=== PATIENT | male | born 1945 | race Caucasian/White ===

== ENCOUNTER → 2016-04-22 | Outpatient (CLI) | payer OTHER, MEDICARE | LOC: BMCIMAGING 15:17 | PROVIDERS: ATTEND Internal Medicine | DX: R05 Cough (principal); R06.02 Shortness of breath ==

== ENCOUNTER 2016-05-16 15:57 | Inpatient (IN) | payer OTHER, MEDICARE ==
--- NOTE | 2016-05-16 16:06 | CPEKG ---
Heart Rate: 34 RR Interval: 1765 QRSD Interval: 114 QT Interval: 496 QTC Interval: 373 QRS [place]: 21 T Wave [place]: 17 EKG Severity - ABNORMAL ECG - EKG Impression: JUNCTIONAL ESCAPE RHYTHM EKG Impression: INCOMPLETE RIGHT BUNDLE BRANCH BLOCK Electronically Signed By: Ernesto Carbone 16-May-2016 21:44:06
--- NOTE | 2016-05-16 16:09 | EDPHY ---
H & P Time Seen by Provider: 05/16/16 16:08 - Medical/Surgical History Hx Asthma: No Hx Chronic Respiratory Disease: No Hx Diabetes: No Hx Cardiac Disease: Yes Hx Renal Disease: Yes Hx Cirrhosis: No Hx Alcoholism: No Hx HIV/AIDS: No Hx Splenectomy or Spleen Trauma: No Other PMH: right nephrectomy, CABG in 2003, prostatectomy, - Social History Smoking Status: Former smoker Constitutional: Initial Vital Signs Temperature (C) 36.8 C 05/16/16 15:57 Heart Rate 34 L 05/16/16 15:57 Respiratory Rate 16 05/16/16 15:57 Blood Pressure 118/75 05/16/16 15:57 O2 Sat (%) 91 L 05/16/16 15:57 O2 Delivery Mode Nasal Cannula O2 (L/minute) 2 Allergies/Adverse Reactions: No Known Allergies Allergy (Unverified 07/24/14 18:07) Home Medications: Medication Instructions Recorded Acetaminophen [Tylenol ES 500 mg 500 mg PO Q8H PRN 07/24/14 (*)] Acetamn/Diphenhydramine 500/25 1 each PO HS PRN 07/24/14 [Tylenol PM (*)] Aspirin [Aspirin 81mg (*)] 81 mg PO HS 07/24/14 Atorvastatin Calcium [Lipitor 40 40 mg PO HS 07/24/14 mg (*)] Calcitriol 0.5 mcg PO MOWETHSA 07/24/14 Herbals/Supplements -Info Only 1 ea PO DAILY 07/24/14 Melatonin [Melatonin 3 MG (*)] 3 mg PO HS 07/24/14 Sodium Bicarbonate [Na Bicarb] 650 mg PO BID 07/24/14 amLODIPine BESYLATE [Norvasc 5 mg 5 mg PO DAILY #0 tab 07/25/14 (*)] Carvedilol 25 mg PO 05/16/16 methylPREDNISolone [Medrol 4mg (*)] 4 mg PO 05/16/16 Medical Decision Making ED Course/Re-evaluation: CHIEF COMPLAINT: Bradycardia. HISTORY OF PRESENT ILLNESS: The patient is a 70-year-old male with a history of stage IV renal disease and CABG who presents via EMS with bradycardia. A month ago he developed exertional shortness of breath. 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 He denies syncope, chest pain, or other complaints. He has no complaints lying in bed today. REVIEW OF SYSTEMS: A 10 point review of systems was performed and is negative with the exception of the elements mentioned in the history of present illness. PHYSICAL EXAM: HR, BP, O2 Sat, RR. Temp noted General Appearance: Alert, well hydrated, appropriate, and non-toxic appearing. Head: Atraumatic without scalp tenderness or obvious injury Eyes: Pupils equal, round, reactive to light and accommodation, EOMI, no trauma , no injection. Ears: Clear bilaterally, no perforation, normal landmarks Nose: Atraumatic, no rhinorrhea, clear. Throat: There is no erythema or exudates, no lesions, normal tonsils, mucus membranes moist. Neck: Supple, 2+ carotid upstroke, nontender, no lymphadenopathy. Respiratory: No retractions, no distress, no wheezes, and no accessory muscle use. Lungs are clear to auscultation bilaterally. Cardiovascular: Regular rate and rhythm, no murmurs, rubs, or gallops. Bilateral carotid, radial, dorsalis pedis, and posterior tibial pulses intact. Good capillary refill all extremities. Gastrointestinal: Abdomen is soft, nontender, non-distended, no masses, no rebound, no guarding, no peritoneal signs. Musculoskeletal: Normal active ROM of all extremities, atraumatic. Neurological: Alert, appropriate, and interactive. The patient has normal DTRs and non-focal cranial nerves, motor, sensory, and cerebellar exam. Skin: No rashes, good turgor, no nodules on palpation. Past medical history: Stage IV Renal Disease (does not yet require dialysis). Past surgical history: Nephrectomy, CABG, prostatectomy. Family history: N/A. Social history: Lives in [place]. DIAGNOSTICS/PROCEDURES/CRITICAL CARE TIME: The 12 lead EKG was interpreted by myself. See hard copy and/or "tracemaster" electronic copy for interpretation. Junctional escape rhythm rate 34. The 12 lead EKG was interpreted by myself. See hard copy and/or "tracemaster" electronic copy for interpretation. Sinus rhythm rate 54, first degree AV block. Critical care time spent by me, Dr. Carbone, exclusively with this patient was 45 minutes, exclusive of PA time and exclusive of procedures. I gave IVF, insulin, calcium chloride, Kayexalate, and glucose to prevent worsening of the patients condition. DIFFERENTIAL DIAGNOSIS: The differential diagnosis for the patient's shortness of breath and hypoxemia included but was not limited to pneumonia, sick sinus syndrome, hyperkalemia, myocardial infarction, acute mountain sickness, high altitude pulmonary edema, congestive heart failure, and pulmonary embolus. MEDICAL DECISION MAKIN-year-old male with a history of end stage kidney disease presents via EMS with bradycardia. He does have a history of hyperkalemia in the past. He was sent by Dr. Cartagena and needs hospitalization on 2W. He is due for pacemaker placement tomorrow. ISTAT shows a potassium of 6.4 and I do not see peaked T- waves on EKG. This represents a hyperkalemic emergency. We will treat him for hyperkalemia and ascertain if this is a cause of his bradycardia. An IV was established and labs ordered. We will obtain a chest x-ray. 1gm IV Calcium chloride administered along with 10 units regular insulin in 10% dextrose solution over an hour and 30gm oral Kayexalate. The second ISTAT is the same at the first, confirming the hyperkalemic emergency. The patient did not correct his rhythm after calcium administration. He will be given another 1gm of Calcium chloride. The patient still has not corrected his rhythm and heart rate is 28. Temporary pacer pads were placed and a repeat EKG has been ordered. 1640: Consulted with Dr. Diop, nephrology. She will come to the ER to dialyze the patient. I have paged Dr. Blanchard for emergent placement of hemodialysis port. 1643: Consulted with Dr. Abebe, hospitalist. She accepts admission to ICU for Dr. Sellers. 1653: Consulted with Dr. Blanchard, surgery. He is aware of the patient and will place a catheter. 1700: Consulted with Dr. Sellers and updated him on the patient's condition. Dr. Cartagena paged. 1704: Consulted with Dr. Cartagena, cardiology and informed him of the patient's course in the ER today. 1715: Patient has converted to sinus rhythm in the 55-60 rate. Repeat EKG shows sinus rhythm rate 55 with first degree AV block. I discussed the plan with the patient and answered his questions. He is comfortable with the plan. - Data Points Laboratory Results: Laboratory Results 04/03/17 16:14 05/16/16 16:14 05/16/16 05/16/16 05/16/16 16:28 16:14 16:14 WBC RBC Hgb POC Hgb 10.5 gm/dL L gm/dL (14.5-17.3) Hct POC Hct 31 % L % (42.8-50.6) MCV MCH MCHC RDW Plt Count MPV Neut % (Auto) Lymph % (Auto) [place] % (Auto) Eos % (Auto) Baso % (Auto) Nucleat RBC Rel Count Absolute Neuts (auto) Absolute Lymphs (auto) Absolute Monos (auto) Absolute Eos (auto) Absolute Basos (auto) Absolute Nucleated RBC Immature Gran % Immature Gran # PT 14.3 SEC SEC (12.0-15.0) INR 1.12 (0.83-1.16) APTT 24.6 SEC SEC (23.0-38.0) POC Sodium 140 mEq/L mEq/L (134-144) Sodium 136 mEq/L mEq/L (134-144) POC Potassium 6.4 mEq/L H* mEq/L (3.3-5.0) Potassium 6.6 mEq/L H* mEq/L (3.5-5.2) POC Chloride 111 mEq/L H mEq/L (96-108) Chloride 111 mEq/L H mEq/L (97-110) Carbon Dioxide 15 mEq/l L mEq/l (22-31) Anion Gap 10 mEq/L mEq/L (8-16) POC BUN 59 mg/dL H mg/dL (7-23) BUN 60 mg/dL H mg/dL (7-23) Creatinine 5.8 mg/dL H mg/dL (0.7-1.3) POC Creatinine 6.2 mg/dL H mg/dL (0.8-1.5) Estimated GFR 10 Glucose 138 mg/dL H mg/dL (70-100) POC Glucose 133 mg/dL H mg/dL (70-100) Calcium 8.7 mg/dL mg/dL (8.5-10.4) Magnesium 2.0 mg/dL mg/dL (1.6-2.3) Troponin I < 0.012 ng/mL ng/mL (0-0.034) NT-Pro-B Natriuret Pep 5860 pg/mL H pg/mL (0-125) 05/16/16 05/16/16 16:14 16:11 WBC 10.51 10^3/uL H 10^3/uL (3.80-9.50) RBC 3.26 10^6/uL L 10^6/uL (4.40-6.38) Hgb 9.9 g/dL L g/dL (13.7-17.5) POC Hgb 10.5 gm/dL L gm/dL (14.5-17.3) Hct 30.9 % L % (40.0-51.0) POC Hct 31 % L % (42.8-50.6) MCV 94.8 fL fL (81.5-99.8) MCH 30.4 pg pg (27.9-34.1) MCHC 32.0 g/dL L g/dL (32.4-36.7) RDW 13.6 % % (11.5-15.2) Plt Count 238 10^3/uL 10^3/uL (150-400) MPV 10.8 fL fL (8.7-11.7) Neut % (Auto) 83.7 % H % (39.3-74.2) Lymph % (Auto) 5.6 % L % (15.0-45.0) [place] % (Auto) 6.6 % % (4.5-13.0) Eos % (Auto) 2.7 % % (0.6-7.6) Baso % (Auto) 1.0 % % (0.3-1.7) Nucleat RBC Rel Count 0.0 % % (0.0-0.2) Absolute Neuts (auto) 8.81 10^3/uL H 10^3/uL (1.70-6.50) Absolute Lymphs (auto) 0.59 10^3/uL L 10^3/uL (1.00-3.00) Absolute Monos (auto) 0.69 10^3/uL 10^3/uL (0.30-0.80) Absolute Eos (auto) 0.28 10^3/uL 10^3/uL (0.03-0.40) Absolute Basos (auto) 0.10 10^3/uL 10^3/uL (0.02-0.10) Absolute Nucleated RBC 0.00 10^3/uL 10^3/uL (0-0.01) Immature Gran % 0.4 % % (0.0-1.1) Immature Gran # 0.04 10^3/uL 10^3/uL (0.00-0.10) PT INR APTT POC Sodium 140 mEq/L mEq/L (134-144) Sodium POC Potassium 6.4 mEq/L H* mEq/L (3.3-5.0) Potassium POC Chloride 111 mEq/L H mEq/L (96-108) Chloride Carbon Dioxide Anion Gap POC BUN 64 mg/dL H mg/dL (7-23) BUN Creatinine POC Creatinine 6.3 mg/dL H mg/dL (0.8-1.5) Estimated GFR Glucose POC Glucose 140 mg/dL H mg/dL (70-100) Calcium Magnesium Troponin I NT-Pro-B Natriuret Pep Medications Given: Discontinued Medications Calcium Chloride (Calcium Chloride) 1 gm IV EDNOW ONE Stop: 05/16/16 16:28 Last Admin: 05/16/16 16:42 Dose: 1 gm Calcium Chloride (Calcium Chloride) 1 gm IV EDNOW ONE Stop: 05/16/16 16:57 Last Admin: 05/16/16 17:04 Dose: 1 gm Sodium Polystyrene Sulfonate (Kayexalate) 30 gm PO EDNOW ONE Stop: 05/16/16 16:29 Last Admin: 05/16/16 17:06 Dose: 30 gm Point of Care Test Results: 05/16/16 05/16/16 16:11 16:28 POC Sodium 140 140 POC Potassium 6.4 H* 6.4 H* POC Chloride 111 H 111 H POC BUN 64 H 59 H POC Creatinine 6.3 H 6.2 H POC Glucose 140 H 133 H Departure - Departure Disposition: [facility] Acute Clinical Impression: End stage kidney disease, Hyperkalemic emergency, Bradycardia Condition: Fair Report Scribed for: Ernesto Carbone Report Scribed by: Carlos Alberto Torres Date of Report: 05/16/16 Time of Report: 16:10
[2016-05-16] MEDS ORDERED: CALCIUM CHLORIDE 1 GM/10 ML INJ IV ONE ×2 (16:27→16:56)
[2016-05-16] MEDS ORDERED: SODIUM POLY SULF 15 GM/60 ML BOTTLE PO ONE (16:28)
[2016-05-16 16:32] LABS: % IMMATURE GRANULYOCYTES 0.4 % (0.0-1.1); ABSOLUTE IMMATURE GRANULOCYTES 0.04 10^3/uL (0.00-0.10); ADD DIFF? NO; ADD MORPH? NO; ADD SCAN? NO; ATYPICAL LYMPHOCYTE FLAG 0 (0-99); FRAGMENT RBC FLAG 0 (0-99); HEMATOCRIT 30.9 % (40.0-51.0); HEMOGLOBIN 9.9 g/dL (13.7-17.5); LEFT SHIFT FLG 0 (0-99); LIPEMIA HEMOLYSIS FLAG 80 (0-99); MEAN CELL HEMOGLOBIN 30.4 pg (27.9-34.1); MEAN CELL VOLUME 94.8 fL (81.5-99.8); MEAN PLATELET VOLUME 10.8 fL (8.7-11.7); PLATELET CLUMPS FLAG 20 (0-99); PLATELET COUNT 238 10^3/uL (150-400); RED BLOOD CELL COUNT 3.26 10^6/uL (4.40-6.38); RED CELL DISTRIBUTION WIDTH 13.6 % (11.5-15.2)
[2016-05-16] MEDS ORDERED: ONDANSETRON 4 MG/2 ML VIAL ONE (16:39)
[2016-05-16] MEDS ORDERED: CALCIUM CHLORIDE 1 GM/10 ML INJ ONE (16:53)
[2016-05-16 16:59] LABS: ANION GAP 10 mEq/L (8-16); CALCIUM 8.7 mg/dL (8.5-10.4); CARBON DIOXIDE 15 mEq/l (22-31); CHLORIDE 111 mEq/L (97-110); CREATININE 5.8 mg/dL (0.7-1.3); GLOMERULAR FILTRATION RATE 10; GLUCOSE 138 mg/dL (70-100); SODIUM 136 mEq/L (134-144)
[2016-05-16] MEDS ORDERED: D10W IV ONE (17:00)
[2016-05-16] MEDS ORDERED: INSULIN REGULAR HUMAN IV ONE (17:00)
[2016-05-16 17:10] LABS: APTT 24.6 SEC (23.0-38.0); INR 1.12 (0.83-1.16); PROTIME(PATIENT) 14.3 SEC (12.0-15.0)
[2016-05-16 17:11] LABS: TROPONIN I < 0.012 ng/mL (0-0.034)
[2016-05-16 17:12] LABS: POTASSIUM 6.6 mEq/L (3.5-5.2)
--- NOTE | 2016-05-16 17:23 | CPEKG ---
Heart Rate: 54 RR Interval: 1111 P-R Interval: 224 QRSD Interval: 106 QT Interval: 432 QTC Interval: 410 P [place]: 0 QRS [place]: 69 T Wave [place]: 27 EKG Severity - ABNORMAL ECG - EKG Impression: SINUS RHYTHM EKG Impression: FIRST DEGREE AV BLOCK Electronically Signed By: Ernesto Carbone 16-May-2016 21:44:06
[2016-05-16] MEDS ORDERED: SODIUM BICARBONATE 50 MEQ/50 ML SYR IVP ONE ×2 (17:33→17:34)
[2016-05-16] MEDS ORDERED: ONDANSETRON 4 MG/2 ML VIAL IVP PRN (17:34)
[2016-05-16] MEDS ORDERED: ONDANSETRON DISINTEGRATING 4 MG TAB PO PRN (17:34)
[2016-05-16] MEDS ORDERED: LIDOCAINE 1% 30 ML SDV ONE (18:10)
--- NOTE | 2016-05-16 18:12 | GHP ---
[f rep st] HISTORY AND PHYSICAL DATE OF ADMISSION: 05/16/2016 CHIEF COMPLAINT: Bradycardia. HISTORY OF PRESENT ILLNESS: This is a 70-year-old man who was sent in from Dr. Cartagena's office today for bradycardia. He notes that he was seeing Dr. Cartagena for an echocardiogram today as he has had abo ut a month's worth of presyncope, fatigue, dizziness, some chest pressure. In Dr. Cartagena's office, he was found to have a junctional bradycardia with rates in the 30s. He has chronic kidney disease. He notes that over the last 6 months or so his creatinine has gone f rom 2 to about 5. He has been followed closely by Dr. Sethi. He has maintained a low-protein a nd low-potassium diet. He has been taking sodium bicarbonate. PAST MEDICAL/SURGICAL HISTORY: 1. Chronic kidney disease, followed by Dr. Sethi. 2. Coronary artery disease, status post CABG. 3. Hypertension. 4. Prostate cancer, status post prostatectomy. 5. History of right nephrectomy as a child. 6. Hyperlipidemia. MEDICATIONS: Please see medication reconciliation. ALLERGIES: No known drug allergies. SOCIAL HISTORY: He quit drinking and smoking 20-40 years ago, respectively. FAMILY HISTORY: Brother has heart disease. REVIEW OF SYSTEMS: A 10-point review of systems is conducted and is negative, except per HPI. PHYSICAL EXAM: VITAL SIGNS: Blood pressure 124/74, heart rate initially 34, up to 54 with insulin, respiration rate 18, saturating 94% on 2 L. Temperature is 36.7. GENERAL: The patient is a pleas ant man who appears somewhat anxious, otherwise in no acute distress. HEENT: Normocephalic, atrauma tic. CARDIOVASCULAR: Regular rate and rhythm. He is bradycardic. CHEST: Exam shows a midline st ernotomy scar. PULMONARY: Exam shows him to be in no respiratory distress. Lungs are clear to aus cultation bilaterally. ABDOMEN: Soft, nontender, nondistended. SKIN: No rash. : No [place]. N EUROLOGIC: Exam shows him to be alert and oriented x3. He is moving all extremities. PSYCHIATRIC: Exam shows normal mood and affect. LABS: White count is 10.5. Platelets are 238. Hemoglobin is 9.9. INR is 1.1. Potassium 6.4. Bi carb is 15, creatinine 5.8. BNP is 5860. DATA: 1. I discussed this with Dr. Carbone in the emergency department. 2. I personally reviewed and interpreted both of his EKGs. The first one shows junctional bradycar jonel. There are clearly no P waves. 3. EKG shows possible P waves. His rate has increased from 34 up to 54 as well. This is clearly s inus. IMPRESSION/PLAN: A 70-year-old man with critical hyperkalemia due to kidney disease, which precipitated a junctional bradycardia. 1. Critical hyperkalemia: He has received calcium chloride, insulin and D5 in the emergency depart ment. This has improved his rate and changed his rhythm from junctional les to sinus. Surgery nguyen s been consulted and will place an emergent hemodialysis catheter. Nephrology has been consulted an d will emergently dialyze him tonight. He is quite acidotic as well from his kidney disease. I hav e given him 2 amps of bicarb. 2. Chronic kidney disease: Had planned on starting peritoneal dialysis. I have explained clearly that he will need emergent hemodialysis and then would still potentially be a peritoneal dialysis ca ndidate. 3. Junctional bradycardia: At this point, this has resolved, though without emergent hemodialysis, likely to recur. Cardiology, he was sent in by Dr. Cartagena, and this has been discussed with Dr. Cartagena , who will follow along. If his rate and rhythm do not improve/resolve with correction of his elect rolyte abnormalities, he still may need a pacemaker, but this does not seem clear at this point. 4. Coronary artery disease, status post coronary artery bypass grafting: Will continue his cardiac medications, clearly holding beta blockers at this point. 5. Prostate cancer, status post prostatectomy. 6. Hyperlipidemia. BILLING: I spent 50 minutes of critical care time caring for the patient. We are prepared to emerg ently pace him if necessary. He needs emergent dialysis for critical hyperkalemia. /[id number]/MODL
--- NOTE | 2016-05-16 18:52 | PDGENHP ---
History and Physical - Chief Complaint CKD 5, hyperkalemia - History of Present Illness Mr. Espinoza is a 70 yo M with h/o solitary kidney and CKD stage V who was admitted to day with bradycardia and junctional rhythm. Pt states that at the beginning of April, he had what he thought was the flu, lasted about a week and then went away. Then, for the past two weeks, he has been feeling dizzy, having some dyspnea, and also having some pressure in his chest radiating to abdomen. He was seen in Cardiology clinic today and was noted to be bradycardic with a junctional rhythm, was sent to ER. His K was noted to be 6.6 , he was given calcium, insulin and D50. Upon pushing insulin, his bradycardia improved and he now feels better. He also got some bicarb in ED. His penitentiary plan is to do PD but he still has not gotten his catheter placed yet. History Information - Allergies/Home Medication List Allergies/Adverse Reactions: No Known Allergies Allergy (Unverified 07/24/14 18:07) Home Medications: Aspirin [Aspirin 81mg (*)] 81 mg PO HS 07/24/14 [Last Taken 05/15/16 23:50] Herbals/Supplements -Info Only 1 ea PO DAILY 07/24/14 [Last Taken Unknown] Sodium Bicarbonate [Na Bicarb] 650 mg PO BID 07/24/14 [Last Taken 05/16/16 11:00 ] Atorvastatin Calcium [Lipitor 40 mg (*)] 40 mg PO HS 05/16/16 [Last Taken 23:50] Carvedilol [Coreg (*)] 25 mg PO BIDMEAL 05/16/16 [Last Taken 05/16/16 11:00] Multivitamins [Multivitamin (*)] 1 tab PO DAILY@16 05/16/16 [Last Taken 16:00] Vitamin B Complex [B Complex] 1 tab PO DAILY@05/16/16 [Last Taken 05/15/16 18 :00] amLODIPine BESYLATE [Norvasc 10 mg (*)] 10 mg PO DAILY 05/16/16 [Last Taken 04/29 11:00] I have personally reviewed and updated: medical history Past Medical History: Solitary kidney. CKD V. CAD. HTN. HLD. h/o prostate cancer - Surgical History Additional surgical history: Prostatectomy. Nephrectomy. CABG - Family History Additional family history: Brother with heart disease - Social History Smoking Status: Former smoker Review of Systems ROS: 10pt was reviewed & negative except for what was stated in HPI & below Physical Exam Temp Pulse Resp BP Pulse Ox 36.9 C 59 L 20 117/47 L 99 05/16/16 17:40 05/16/16 18:00 05/16/16 18:00 05/16/16 18:00 05/16/16 18:00 O2 (L/minute) 2 Constitutional: no apparent distress, not in pain Eyes: PERRL, anicteric sclera, EOMI Ears, Nose, Mouth, Throat: moist mucous membranes, hearing normal Cardiovascular: regular rate and rhythym, pulses symmetric bilaterally Peripheral Pulses: 2+: dorsalis-pedis (R), dorsalis-pedis (L) Respiratory: no respiratory distress, no rales or rhonchi, clear to auscultation Gastrointestinal: normoactive bowel sounds, soft, non-tender abdomen Skin: warm, No rash Musculoskeletal: full muscle strength, no joint effusions Neurologic: AAOx3, CN II-XII Intact, No asterixes Psychiatric: interacting appropriately, not anxious, not encephalopathic Lab Data & Imaging Review 05/16/16 16:14 05/16/16 16:14 WBC 10.51 10^3/uL (3.80-9.50) H 05/16/16 16:14 RBC 3.26 10^6/uL (4.40-6.38) L 05/16/16 16:14 Hgb 9.9 g/dL (13.7-17.5) L 05/16/16 16:14 POC Hgb 10.5 gm/dL (14.5-17.3) L 05/16/16 16:28 Hct 30.9 % (40.0-51.0) L 05/16/16 16:14 POC Hct 31 % (42.8-50.6) L 05/16/16 16:28 MCV 94.8 fL (81.5-99.8) 05/16/16 16:14 MCH 30.4 pg (27.9-34.1) 05/16/16 16:14 MCHC 32.0 g/dL (32.4-36.7) L 05/16/16 16:14 RDW 13.6 % (11.5-15.2) 05/16/16 16:14 Plt Count 238 10^3/uL (150-400) 05/16/16 16:14 MPV 10.8 fL (8.7-11.7) 05/16/16 16:14 Neut % (Auto) 83.7 % (39.3-74.2) H 05/16/16 16:14 Lymph % (Auto) 5.6 % (15.0-45.0) L 05/16/16 16:14 [place] % (Auto) 6.6 % (4.5-13.0) 05/16/16 16:14 Eos % (Auto) 2.7 % (0.6-7.6) 05/16/16 16:14 Baso % (Auto) 1.0 % (0.3-1.7) 05/16/16 16:14 Nucleat RBC Rel Count 0.0 % (0.0-0.2) 05/16/16 16:14 Absolute Neuts (auto) 8.81 10^3/uL (1.70-6.50) H 05/16/16 16:14 Absolute Lymphs (auto) 0.59 10^3/uL (1.00-3.00) L 05/16/16 16:14 Absolute Monos (auto) 0.69 10^3/uL (0.30-0.80) 05/16/16 16:14 Absolute Eos (auto) 0.28 10^3/uL (0.03-0.40) 05/16/16 16:14 Absolute Basos (auto) 0.10 10^3/uL (0.02-0.10) 05/16/16 16:14 Absolute Nucleated RBC 0.00 10^3/uL (0-0.01) 05/16/16 16:14 Immature Gran % 0.4 % (0.0-1.1) 05/16/16 16:14 Immature Gran # 0.04 10^3/uL (0.00-0.10) 05/16/16 16:14 PT 14.3 SEC (12.0-15.0) 05/16/16 16:14 INR 1.12 (0.83-1.16) 05/16/16 16:14 APTT 24.6 SEC (23.0-38.0) 05/16/16 16:14 POC Sodium 140 mEq/L (134-144) 05/16/16 16:28 Sodium 136 mEq/L (134-144) 05/16/16 16:14 POC Potassium 6.4 mEq/L (3.3-5.0) H* 05/16/16 16:28 Potassium 6.6 mEq/L (3.5-5.2) H* 05/16/16 16:14 POC Chloride 111 mEq/L (96-108) H 05/16/16 16:28 Chloride 111 mEq/L (97-110) H 05/16/16 16:14 Carbon Dioxide 15 mEq/l (22-31) L 05/16/16 16:14 Anion Gap 10 mEq/L (8-16) 05/16/16 16:14 POC BUN 59 mg/dL (7-23) H 05/16/16 16:28 BUN 60 mg/dL (7-23) H 05/16/16 16:14 Creatinine 5.8 mg/dL (0.7-1.3) H 05/16/16 16:14 POC Creatinine 6.2 mg/dL (0.8-1.5) H 05/16/16 16:28 Estimated GFR 10 05/16/16 16:14 Glucose 138 mg/dL (70-100) H 05/16/16 16:14 POC Glucose 133 mg/dL (70-100) H 05/16/16 16:28 Calcium 8.7 mg/dL (8.5-10.4) 05/16/16 16:14 Magnesium 2.0 mg/dL (1.6-2.3) 05/16/16 16:14 Troponin I < 0.012 ng/mL (0-0.034) 05/16/16 16:14 NT-Pro-B Natriuret Pep 5860 pg/mL (0-125) H 05/16/16 16:14 Assessment & Plan Assessment: Assessment/Plan: Hyperkalemia: likely significantly contributing to arrhythmia. - Pt given calcium, insulin, D50, and bicarb. - Will do HD tonight. - Likely HD again tomorrow, will assess. CKD stage V: pt now with hyperkalemia. - Will do HD as above emergently. - custodial, pt wants to do PD, can be arranged as outpatient. Metabolic acidosis: pt got bicarb, will further modulate with HD. Anemia: Hgb 9.9, no need for inpt epo, will monitor. Thank you for the interesting consult. Nephrology will continue to monitor, please call with any additional questions or concerns.
[2016-05-16] MEDS ORDERED: D50W 25 GM/50 ML SYR IVP ONE (19:20)
[2016-05-16] MEDS ORDERED: D50W 25 GM/50 ML SYR IVP PRN (19:43)
[2016-05-16 19:51] LABS: ANION GAP 13 mEq/L (8-16); CALCIUM 10.5 mg/dL (8.5-10.4); CARBON DIOXIDE 18 mEq/l (22-31); CHLORIDE 109 mEq/L (97-110); CREATININE 5.6 mg/dL (0.7-1.3); GLOMERULAR FILTRATION RATE 10; GLUCOSE 49 mg/dL (70-100); POTASSIUM 5.2 mEq/L (3.5-5.2); SODIUM 140 mEq/L (134-144)
[2016-05-16] MEDS ORDERED: D5W 1,000 ML IV SCH (20:00)
--- NOTE | 2016-05-16 20:23 | SOAPPROG ---
SOAP Progress Note Assessment/Plan: Assessment: 70 MALE WITH RENAL FAILURE CRISIS IN NEED OF DIALYSIS ACCESS RISKS AND OPTIONS FULLY DISCUSSED ON NO BLOOD THINNERS Plan:RT IJ CATHETER 05/16/16 20:22 Objective: Vital Signs Temp Pulse Resp BP Pulse Ox 36.9 C 61 22 H 148/57 H 97 05/16/16 17:40 05/16/16 19:00 05/16/16 19:00 05/16/16 19:00 05/16/16 19:00 Laboratory Results 05/16/16 19:30 05/15/16 05/16/16 05/17/16 05:59 05:59 05:59 Intake Total 300 Balance 300 PT 14.3 SEC (12.0-15.0) 05/16/16 16:14 INR 1.12 (0.83-1.16) 05/16/16 16:14 ICD10 Worksheet Patient Problems: Problems Problem Status Onset Bradycardia Acute End stage kidney disease Acute Hyperkalemia Acute
--- NOTE | 2016-05-16 20:25 | POSTOPPROG ---
Post Op Note Date of Operation: 05/16/16 Surgeon: Guy Blanchard Anesthesia: Local (Specify) Pre-op Diagnosis: RENAL FAILURE Post-op Diagnosis: SAME Indication: HYPERCALEMIA Procedure: ULTRASOUND QUIDED RT IJ MARKURAR CATH PLACEMENT Findings: GOOD POSITION AND FLOW Inf/Abcess present in the surg proc area at time of surgery?: No Depth: Deep Incisional (Fascial) EBL: Minimal Complications: 0
[2016-05-16] MEDS: oxyCODONE IR 5 MG TAB PO PRN (22:18)
[2016-05-17] MEDS: TEMAZEPAM 15 MG CAP PO PRN ×2 (01:37→23:07)
[2016-05-17] MEDS ORDERED: HEPARIN 50,000 UNIT/10 ML VIAL ONE (01:42)
[2016-05-17] MEDS: oxyCODONE IR 5 MG TAB PO PRN (05:01)
[2016-05-17 05:16] LABS: % IMMATURE GRANULYOCYTES 0.3 % (0.0-1.1); ABSOLUTE IMMATURE GRANULOCYTES 0.02 10^3/uL (0.00-0.10); ADD DIFF? NO; ADD MORPH? NO; ADD SCAN? NO; ATYPICAL LYMPHOCYTE FLAG 0 (0-99); FRAGMENT RBC FLAG 0 (0-99); HEMATOCRIT 27.8 % (40.0-51.0); HEMOGLOBIN 9.3 g/dL (13.7-17.5); LEFT SHIFT FLG 0 (0-99); LIPEMIA HEMOLYSIS FLAG 80 (0-99); MEAN CELL HEMOGLOBIN 31.6 pg (27.9-34.1); MEAN CELL HEMOGLOBIN CONCENTR. 33.5 g/dL (32.4-36.7); MEAN CELL VOLUME 94.6 fL (81.5-99.8); MEAN PLATELET VOLUME 10.8 fL (8.7-11.7); PLATELET CLUMPS FLAG 0 (0-99); PLATELET COUNT 203 10^3/uL (150-400); RED BLOOD CELL COUNT 2.94 10^6/uL (4.40-6.38); RED CELL DISTRIBUTION WIDTH 13.3 % (11.5-15.2)
[2016-05-17 05:48] LABS: ALANINE AMINOTRANSFERASE 59 IU/L (21-72); ALBUMIN 3.6 g/dL (3.5-5.0); ALKALINE PHOSPHATASE 88 IU/L (38-126); ANION GAP 13 mEq/L (8-16); ASPARTATE AMINOTRANSFERASE 26 IU/L (17-59); BILIRUBIN,TOTAL 0.6 mg/dL (0.1-1.4); CALCIUM 8.7 mg/dL (8.5-10.4); CARBON DIOXIDE 26 mEq/l (22-31); CHLORIDE 104 mEq/L (97-110); CREATININE 3.1 mg/dL (0.7-1.3); GLOMERULAR FILTRATION RATE 20; GLUCOSE 61 mg/dL (70-100); POTASSIUM 3.8 mEq/L (3.5-5.2); SODIUM 143 mEq/L (134-144); TOTAL PROTEIN 5.6 g/dL (6.3-8.2)
--- NOTE | 2016-05-17 07:32 | CPEKG ---
Heart Rate: 51 RR Interval: 1176 P-R Interval: 190 QRSD Interval: 112 QT Interval: 448 QTC Interval: 413 P [place]: 0 QRS [place]: 11 T Wave [place]: 28 EKG Severity - ABNORMAL ECG - EKG Impression: SINUS RHYTHM EKG Impression: INCOMPLETE RIGHT BUNDLE BRANCH BLOCK EKG Impression: SINUS RHYTHM HAS REPLACED JUNCTIONAL RHYTHM ON PRIOR ECG Electronically Signed By: Mikhail Fernandes 17-May-2016 09:03:07
--- NOTE | 2016-05-17 08:21 | PDCARPN ---
Cardiology Progress Note Chief Complaint: 70 year old with symptomatic junctional bradycardial in my office yesterday with rate of 36. Found to have K of 6.8 and Cr of 6.8. Junctional rhythm resolved with normalization of potassium. He got HD last PM. Currently in NSR at 62. K is 3.8. He is feeling markedly better. Plan for HD today Assessment/Plan: Assessment: 1. Symptomatic Junctional bradycardia 2. Hyperkalemia 3. ESRD 4. CAD 5. HTN Plan: 1. Hold coreg for now 2. Cancel plan for pacemaker 3. No LHC at this time 4. will follow 05/17/16 08:21 Reviewed/Discussed With: multidisciplinary team Time Spent With Patient: 25 min Objective: Vital Signs (8 Hrs) Pulse Resp BP Pulse Ox 05/17/16 07:00 61 22 H 141/49 H 95 05/17/16 06:00 69 18 141/49 H 98 05/17/16 05:00 64 18 127/47 H 99 05/17/16 04:00 65 19 130/53 H 100 05/17/16 03:00 67 19 127/47 H 98 05/17/16 02:00 65 22 H 134/48 H 89 L 05/17/16 01:00 69 20 141/57 H 94 Intake/Output (24 Hrs) 05/16/16 05/17/16 05/18/16 05:59 05:59 05:59 Intake Total 600 Output Total 2300 Balance -1700 Intake: Oral (ml) 300 IV Infused (ml) 300 Output: Urine (ml) 300 Toilet 300 Dialysis Fluid Removed 1999 Other: Weight 74.3 kg Number of Voids Toilet 3 Result Diagrams: 05/17/16 04:14 05/17/16 04:14 - Physical Exam Constitutional: WDWN, no apparent distress Ears, Nose, Mouth, Throat: moist mucous membranes Cardiovascular: regular rate and rhythm, no murmurs, no rubs, no gallops Respiratory: clear to auscultate bilat Gastrointestinal: normoactive bowel sounds Skin: no rashes Musculoskeletal: no muscular tenderness Neurologic: AAOx3, CN II-XII grossly intact Psychiatric: cooperative, interactive, following commands ICD10 Worksheet Patient Problems: Problems Problem Status Onset Bradycardia Acute End stage kidney disease Acute Hyperkalemia Acute
--- NOTE | 2016-05-17 09:26 | SOAPPROG ---
SOAP Progress Note Assessment/Plan: Assessment: 1. Bradycardia Converted with treatment of hyperkalemia. Reviewed with cards. No further interventions needed now. 2. ESRD HD tomorrow. Plan fistula and catheter placement. Plan DC to [facility]. CM consult placed. 3. Anemia Epo Plan: 05/17/16 09:24 Subjective: Doing much better Objective: Vital Signs Temp Pulse Resp BP Pulse Ox 36.4 C 61 22 H 141/49 H 95 05/16/16 20:00 05/17/16 07:00 05/17/16 07:00 05/17/16 07:00 05/17/16 07:00 Laboratory Results 05/17/16 04:14 05/17/16 04:14 05/16/16 05/17/16 05/18/16 05:59 05:59 05:59 Intake Total 600 Output Total 2300 Balance -1700 PT 14.3 SEC (12.0-15.0) 05/16/16 16:14 INR 1.12 (0.83-1.16) 05/16/16 16:14 Physical Exam - Physical Exam General Appearance: no apparent distress Neck: other (temp catheter in place.) Respiratory: lungs clear Cardiac/Chest: regular rate, rhythm Extremities: pedal edema Neuro/Psych: oriented x 3 ICD10 Worksheet Patient Problems: Problems Problem Status Onset Bradycardia Acute End stage kidney disease Acute Hyperkalemia Acute
[2016-05-17] MEDS ORDERED: EPOETIN ALFA 10,000 UNIT/ML VIAL SC SCH (09:30)
[2016-05-17] MEDS: ACETAMINOPHEN 325 MG TAB PO PRN ×2 (10:01→21:22)
--- NOTE | 2016-05-17 11:17 | HOSPPROG ---
Hospitalist Progress Note Assessment/Plan: 70-year-old man who had been followed by Dr. Sethi for chronic kidney disease, was planning on starting peritoneal dialysis soon. Presented to his time recorder's office for echocardiogram, found to be in junctional bradycardia. Transfer to the ED, potassium was 6.4. Received emergent dialysis last night with resolution of his junctional bradycardia. # ESRD/severe hyperkalemia resolved s/p HD - HD tomorrow - needs tunneled cath and fistula - gen surg consulted # junctional bradycardia, now resolved # CAD - hold coreg and asa (needs surgery) - cont statin ## chart reviewed venous mapping reviewed Subjective: s/p HD last night Objective: Vital Signs Temp Pulse Resp BP Pulse Ox 37.2 C 66 21 H 135/57 H 92 05/17/16 09:00 05/17/16 10:00 05/17/16 10:00 05/17/16 10:00 05/17/16 10:00 Laboratory Results 05/17/16 04:14 05/17/16 04:14 05/16/16 05/17/16 05/18/16 05:59 05:59 05:59 Intake Total 600 Output Total 2300 Balance -1700 PT 14.3 SEC (12.0-15.0) 05/16/16 16:14 INR 1.12 (0.83-1.16) 05/16/16 16:14 - Physical Exam Constitutional: no apparent distress, appears nourished Ears, Nose, Mouth, Throat: other (R HD catheter) Cardiovascular: regular rate and rhythym, no murmur, rub, or gallop Respiratory: no respiratory distress, no rales or rhonchi, clear to auscultation Gastrointestinal: normoactive bowel sounds, soft, non-tender abdomen, no palpable masses ICD10 Worksheet Patient Problems: Problems Problem Status Onset Hyperkalemia Acute End stage kidney disease Acute Bradycardia Acute
[2016-05-17] MEDS: VITAMIN B COMPLEX 1 EA CAP/TAB PO SCH (16:38)
--- NOTE | 2016-05-17 20:10 | SOAPPROG ---
SOAP Progress Note Assessment/Plan: Assessment: 70 MALE WITH RENAL FAILURE CRISIS IN NEED OF DIALYSIS ACCESS RISKS AND OPTIONS FULLY DISCUSSED ON NO BLOOD THINNERS Plan:RT IJ CATHETER 05/16/16 20:22 05/17/16 20:08 SCHEDULED FOR TUNNELLED CATH AND AVF MONDAY AM Objective: Vital Signs Temp Pulse Resp BP Pulse Ox 36.9 C 81 20 134/73 H 97 05/17/16 19:31 05/17/16 19:31 05/17/16 19:31 05/17/16 19:31 05/17/16 19:31 Laboratory Results 05/17/16 04:14 05/17/16 04:14 05/16/16 05/17/16 05/18/16 05:59 05:59 05:59 Intake Total 300 200 Output Total 2300 150 Balance -2000 50 PT 14.3 SEC (12.0-15.0) 05/16/16 16:14 INR 1.12 (0.83-1.16) 05/16/16 16:14 ICD10 Worksheet Patient Problems: Problems Problem Status Onset Bradycardia Acute End stage kidney disease Acute Hyperkalemia Acute
[2016-05-17] MEDS: ATORVASTATIN CALCIUM 40 MG TAB PO SCH (21:21)
[2016-05-18 03:52] LABS: % IMMATURE GRANULYOCYTES 0.2 % (0.0-1.1); ABSOLUTE IMMATURE GRANULOCYTES 0.01 10^3/uL (0.00-0.10); ADD DIFF? NO; ADD MORPH? NO; ADD SCAN? NO; ATYPICAL LYMPHOCYTE FLAG 0 (0-99); FRAGMENT RBC FLAG 0 (0-99); HEMATOCRIT 29.1 % (40.0-51.0); HEMOGLOBIN 9.6 g/dL (13.7-17.5); LEFT SHIFT FLG 0 (0-99); LIPEMIA HEMOLYSIS FLAG 80 (0-99); MEAN CELL HEMOGLOBIN 30.6 pg (27.9-34.1); MEAN CELL VOLUME 92.7 fL (81.5-99.8); MEAN PLATELET VOLUME 10.1 fL (8.7-11.7); PLATELET CLUMPS FLAG 0 (0-99); PLATELET COUNT 212 10^3/uL (150-400); RED BLOOD CELL COUNT 3.14 10^6/uL (4.40-6.38); RED CELL DISTRIBUTION WIDTH 13.2 % (11.5-15.2)
[2016-05-18 04:08] LABS: ALBUMIN 3.5 g/dL (3.5-5.0); ANION GAP 10 mEq/L (8-16); CALCIUM 8.5 mg/dL (8.5-10.4); CARBON DIOXIDE 25 mEq/l (22-31); CHLORIDE 105 mEq/L (97-110); CREATININE 4.1 mg/dL (0.7-1.3); GLOMERULAR FILTRATION RATE 14; GLUCOSE 88 mg/dL (70-100); POTASSIUM 4.2 mEq/L (3.5-5.2); SODIUM 140 mEq/L (134-144)
--- NOTE | 2016-05-18 09:39 | HOSPPROG ---
Hospitalist Progress Note Assessment/Plan: * Junctional bradycardia - due to hyperkalemia -holding coreg * Hyperkalemia - s/p acute dialysis * ESRD - initiating HD -tunnelled catheter and fistula scheduled with Dr. Blanchard * CAD/CABG -continue statin -holding ASA for surgery * HTN - holding Norvasc -watch BP * h/o prostate ca * h/o right nephrectomy Subjective: No complaints Objective: Vital Signs Temp Pulse Resp BP Pulse Ox 36.7 C 60 18 137/71 H 96 05/18/16 07:25 05/18/16 07:25 05/18/16 07:25 05/18/16 07:25 05/18/16 07:25 Laboratory Results 05/18/16 03:30 05/18/16 03:30 05/17/16 05/18/16 05/19/16 05:59 05:59 05:59 Intake Total 300 200 Output Total 2300 680 Balance -2000 -480 PT 14.3 SEC (12.0-15.0) 05/16/16 16:14 INR 1.12 (0.83-1.16) 05/16/16 16:14 tele reviewed - NSR, HR 70-80 EKG reviewed, my personal interpretation is - NSR, no ST changes - Physical Exam Constitutional: no apparent distress, appears nourished, not in pain Cardiovascular: regular rate and rhythym, no murmur, rub, or gallop Respiratory: no respiratory distress, no rales or rhonchi, clear to auscultation Gastrointestinal: normoactive bowel sounds, soft, non-tender abdomen, no palpable masses Skin: no rashes or abrasions, no fluctuance, no induration Neurologic: AAOx3, sensation intact bilaterally Psychiatric: interacting appropriately, not anxious, not encephalopathic, thought process linear ICD10 Worksheet Patient Problems: Problems Problem Status Onset Bradycardia Acute End stage kidney disease Acute Hyperkalemia Acute
--- NOTE | 2016-05-18 12:01 | SOAPPROG ---
GISELE Progress Note Assessment/Plan: Assessment: 70yo male in need of dialysis access attempted to discuss with pt but not in room, will try to return later Pt on schedule for surgery, NPO after midnight. Plan: 05/18/16 12:00 Objective: Vital Signs Temp Pulse Resp BP Pulse Ox 36.7 C 60 18 137/71 H 96 05/18/16 07:25 05/18/16 07:25 05/18/16 07:25 05/18/16 07:25 05/18/16 07:25 Laboratory Results 05/18/16 03:30 05/18/16 03:30 05/17/16 05/18/16 05/19/16 05:59 05:59 05:59 Intake Total 300 200 Output Total 2300 680 Balance -2000 -480 PT 14.3 SEC (12.0-15.0) 05/16/16 16:14 INR 1.12 (0.83-1.16) 05/16/16 16:14 ICD10 Worksheet Patient Problems: Problems Problem Status Onset Bradycardia Acute End stage kidney disease Acute Hyperkalemia Acute
--- NOTE | 2016-05-18 13:34 | PDCARPN ---
Cardiology Progress Note Chief Complaint: Mr. Espinoza remains in NSR. No new juntional rhythm or bradycardia. He is feeling well. His BP has gradually increased. Recommend restarting Coreg. Assessment/Plan: Assessment: 1. Symptomatic Junctional bradycardia 2. Hyperkalemia 3. ESRD 4. CAD 5. HTN Plan: 1. Start Coreg 6.25 mg bid 2. Will follow 3. 15 min spent coordinating care Reviewed/Discussed With: multidisciplinary team Objective: Vital Signs (8 Hrs) Temp Pulse Resp BP Pulse Ox 05/18/16 13:11 36.7 C 66 18 157/84 H 98 05/18/16 07:25 36.7 C 60 18 137/71 H 96 Intake/Output (24 Hrs) 05/17/16 05/18/16 05/19/16 05:59 05:59 05:59 Intake Total 300 200 Output Total 2300 680 Balance -1999 -480 Intake: Oral (ml) 300 200 Output: Urine (ml) 300 680 Toilet 300 Urinal 680 Dialysis Fluid Removed 1999 Other: Weight 75.3 kg Number of Voids Toilet 3 Urinal 1 Number of Stools Toilet 0 Result Diagrams: 05/18/16 03:30 05/18/16 03:30 ICD10 Worksheet Patient Problems: Problems Problem Status Onset Bradycardia Acute End stage kidney disease Acute Hyperkalemia Acute
[2016-05-18 14:49] LABS: HEPATITIS Bs Ab QUANT <5.0 mIU/mL
[2016-05-18] MEDS: VITAMIN B COMPLEX 1 EA CAP/TAB PO SCH (16:01)
[2016-05-18] MEDS: CARVEDILOL 6.25 MG TAB PO SCH (17:42)
[2016-05-18] MEDS: ATORVASTATIN CALCIUM 40 MG TAB PO SCH (21:27)
[2016-05-18] MEDS: TEMAZEPAM 15 MG CAP PO PRN ×2 (21:27→22:56)
--- NOTE | 2016-05-18 22:21 | SOAPPROG ---
GISELE Progress Note Assessment/Plan: Assessment: 1. ESRD. HD # 2 today. Will dialyze as outpatient at [facility]. He has been in contact with them but we should contact tomorrow to confirm slot and verify time. 2. Access. Will have tunneled HD catheter and AV fistula placed by Dr. Blanchard tomorrow. 3. Anemia. Hgb at goal. Continue procrit. Plan: 05/18/16 22:19 05/18/16 22:21 Subjective: Had dialysis # 2 earlier this am. Had a little bit of nausea at the start. Feels much better now. Thinks he would like to dialyze at [facility]. Objective: Vital Signs Temp Pulse Resp BP Pulse Ox 36.7 C 94 15 148/77 H 97 05/18/16 19:55 05/18/16 19:55 05/18/16 19:55 05/18/16 19:55 05/18/16 19:55 Laboratory Results 05/18/16 03:30 05/18/16 03:30 05/17/16 05/18/16 05/19/16 05:59 05:59 05:59 Intake Total 300 200 300 Output Total 2300 680 350 Balance -2000 -480 -50 PT 14.3 SEC (12.0-15.0) 05/16/16 16:14 INR 1.12 (0.83-1.16) 05/16/16 16:14 Comfortable wm in bed RRR, no m/g/r CTAB Abdom soft, nontender No LE edema Temp R IJ Cath in place ICD10 Worksheet Patient Problems: Problems Problem Status Onset Hyperkalemia Acute End stage kidney disease Acute Bradycardia Acute
[2016-05-19 05:15] LABS: % IMMATURE GRANULYOCYTES 0.2 % (0.0-1.1); ABSOLUTE IMMATURE GRANULOCYTES 0.01 10^3/uL (0.00-0.10); ADD DIFF? NO; ADD MORPH? NO; ADD SCAN? NO; ATYPICAL LYMPHOCYTE FLAG 10 (0-99); FRAGMENT RBC FLAG 0 (0-99); HEMATOCRIT 29.5 % (40.0-51.0); HEMOGLOBIN 9.5 g/dL (13.7-17.5); LEFT SHIFT FLG 0 (0-99); LIPEMIA HEMOLYSIS FLAG 80 (0-99); MEAN CELL HEMOGLOBIN 30.4 pg (27.9-34.1); MEAN CELL HEMOGLOBIN CONCENTR. 32.2 g/dL (32.4-36.7); MEAN CELL VOLUME 94.2 fL (81.5-99.8); PLATELET CLUMPS FLAG 0 (0-99); PLATELET COUNT 165 10^3/uL (150-400); RED BLOOD CELL COUNT 3.13 10^6/uL (4.40-6.38); RED CELL DISTRIBUTION WIDTH 13.3 % (11.5-15.2)
[2016-05-19 05:26] LABS: ALBUMIN 3.4 g/dL (3.5-5.0); ANION GAP 13 mEq/L (8-16); CALCIUM 8.6 mg/dL (8.5-10.4); CARBON DIOXIDE 22 mEq/l (22-31); CHLORIDE 103 mEq/L (97-110); CREATININE 3.8 mg/dL (0.7-1.3); GLOMERULAR FILTRATION RATE 16; GLUCOSE 97 mg/dL (70-100); POTASSIUM 3.9 mEq/L (3.5-5.2); SODIUM 138 mEq/L (134-144)
--- NOTE | 2016-05-19 08:31 | SOAPPROG ---
SOAP Progress Note Assessment/Plan: Assessment: Cardiology ([facility]) 1. Symptomatic junctional bradycardia 2/2 hyperkalemia, resolved with normalization of K. Decision was made not to proceed with PPM implantation. Coreg 6.25 mg bid resumed yesterday. Patient has been maintaining NSR overnight without recurrent bradycardia or pauses. 2. ESRD. Scheduled for placement of av fistula today. 3. HTN, uncontrolled. 4. CAD s/p CABGx3. 5. History of atrial flutter. Plan: D/w Dr. Cartagena 1. Continue carvedilol perioperatively. 2. ?resume amlodipine per Renal. 3. Will continue to follow. Subjective: No complaints overnight or this am. Feeling well today in advance of surgery. Objective: Vital Signs Temp Pulse Resp BP Pulse Ox 36.8 C 64 16 151/78 H 97 05/19/16 07:32 05/19/16 07:32 05/19/16 07:32 05/19/16 07:32 05/19/16 07:32 Laboratory Results 05/19/16 05:07 05/19/16 05:07 05/18/16 05/19/16 05/20/16 05:59 05:59 05:59 Intake Total 200 300 Output Total 680 920 Balance -480 -620 PT 14.3 SEC (12.0-15.0) 05/16/16 16:14 INR 1.12 (0.83-1.16) 05/16/16 16:14 Physical Exam - Physical Exam General Appearance: WD/WN, alert, no apparent distress Respiratory: chest non-tender, lungs clear, normal breath sounds Cardiac/Chest: normal peripheral pulses, regular rate, rhythm Neuro/Psych: no motor/sensory deficits, alert, normal mood/affect, oriented x 3 ICD10 Worksheet Patient Problems: Problems Problem Status Onset Bradycardia Acute End stage kidney disease Acute Hyperkalemia Acute
[2016-05-19] MEDS ORDERED: THROMBIN (BOVINE) 5,000 UNIT VIAL TP ONE (08:50)
[2016-05-19] MEDS ORDERED: LIDOCAINE 1% 30 ML SDV ONE (08:50)
[2016-05-19] MEDS ORDERED: THROMBIN (RECOMBINANT) 20,000 UNIT SPRAY TP ONE (08:50)
[2016-05-19] MEDS ORDERED: PROTAMINE SULFATE 50 MG/5 ML VIAL IVP ONE (08:50)
[2016-05-19] MEDS ORDERED: SKIN ADHESIVE (DERMABOND) 1 EACH TP ONE (08:50)
[2016-05-19] MEDS ORDERED: SODIUM BICARBONATE 10 MEQ/10 ML SYR IVP ONE (08:50)
[2016-05-19] MEDS ORDERED: BUPIVACAINE 0.5% 30 ML SDV ONE (08:51)
[2016-05-19] MEDS ORDERED: PAPAVERINE HCL 60 MG/2 ML SDV ONE (08:51)
[2016-05-19] MEDS: CARVEDILOL 6.25 MG TAB PO SCH ×2 (08:57→22:14)
[2016-05-19] MEDS ORDERED: HEPARIN 50,000 UNIT/10 ML VIAL ONE ×2 (09:49→09:53)
--- NOTE | 2016-05-19 10:33 | SOAPPROG ---
GISELE Progress Note Assessment/Plan: Assessment: 1. ESRD His time slot at the [facility] at 4:00 pm. He will get permanent access today, then HD tomorrow. DC could be tomorrow or Sat. He lives alone. 2. Bradycardia Better. BB added at lower dose. I've reviewed with Dr. Cartagena 3. Hyperkalemia Better 4. Hypoxemia Extra UF on Hd tomorrow 05/19/16 10:33 Subjective: Doing ok Objective: Vital Signs Temp Pulse Resp BP Pulse Ox 36.8 C 64 16 151/78 H 97 05/19/16 07:32 05/19/16 07:32 05/19/16 07:32 05/19/16 07:32 05/19/16 07:32 Laboratory Results 05/19/16 05:07 05/19/16 05:07 05/18/16 05/19/16 05/20/16 05:59 05:59 05:59 Intake Total 200 300 Output Total 680 920 Balance -480 -620 PT 14.3 SEC (12.0-15.0) 05/16/16 16:14 INR 1.12 (0.83-1.16) 05/16/16 16:14 Physical Exam - Physical Exam General Appearance: no apparent distress Respiratory: decreased breath sounds Cardiac/Chest: regular rate, rhythm Extremities: pedal edema (trace) ICD10 Worksheet Patient Problems: Problems Problem Status Onset Bradycardia Acute End stage kidney disease Acute Hyperkalemia Acute
[2016-05-19] MEDS ORDERED: ceFAZolin 2 GM/DEXTROSE 100 ML IV ONE (11:00)
[2016-05-19] MEDS ORDERED: CEFAZOLIN 2 GM/DEXTROSE/100 ML BAG IV ONE (14:47)
[2016-05-19] MEDS ORDERED: PROPOFOL/EMULSION 500 MG/50 ML BOTTLE IV ONE (15:06)
[2016-05-19] MEDS ORDERED: MIDAZOLAM 2 MG/2 ML VIAL ONE (15:06)
[2016-05-19] MEDS ORDERED: fentaNYL 250 MCG/5 ML INJ ONE (15:06)
[2016-05-19] MEDS ORDERED: ONDANSETRON 4 MG/2 ML VIAL ONE (15:09)
[2016-05-19] MEDS ORDERED: METOCLOPRAMIDE 10 MG/2 ML VIAL ONE (15:09)
[2016-05-19] MEDS ORDERED: DEXAMETHASONE 4 MG/ML VIAL ONE (15:09)
[2016-05-19] MEDS ORDERED: PROPOFOL 200 MG/20 ML VIAL ONE (17:03)
[2016-05-19] MEDS ORDERED: HEPARIN 10,000 UNIT/10 ML MDV ONE (17:07)
--- NOTE | 2016-05-19 17:11 | HOSPPROG ---
Hospitalist Progress Note Assessment/Plan: * Junctional bradycardia - due to hyperkalemia -restart coreg * Hyperkalemia - s/p acute dialysis * ESRD - initiating HD -tunnelled catheter and fistula scheduled with Dr. Blanchard today * CAD/CABG -continue statin -holding ASA for surgery * HTN - Norvasc * h/o prostate ca * h/o right nephrectomy Subjective: anxious about surgery Objective: Vital Signs Temp Pulse Resp BP Pulse Ox 36.7 C 61 18 141/78 H 99 05/19/16 11:31 05/19/16 11:31 05/19/16 11:31 05/19/16 11:31 05/19/16 11:31 Laboratory Results 05/19/16 05:07 05/19/16 05:07 05/18/16 05/19/16 05/20/16 05:59 05:59 05:59 Intake Total 200 300 Output Total 680 920 Balance -480 -620 PT 14.3 SEC (12.0-15.0) 05/16/16 16:14 INR 1.12 (0.83-1.16) 05/16/16 16:14 d/w Dr. Sethi - likely okay for discharge tomorrow after dialysis - outpatient dialysis arranged from Monday - Physical Exam Constitutional: no apparent distress, appears nourished, not in pain Cardiovascular: regular rate and rhythym, no murmur, rub, or gallop Respiratory: no respiratory distress, no rales or rhonchi, clear to auscultation Gastrointestinal: normoactive bowel sounds, soft, non-tender abdomen, no palpable masses Skin: no rashes or abrasions, no fluctuance, no induration Neurologic: AAOx3, sensation intact bilaterally Psychiatric: interacting appropriately, not anxious, not encephalopathic, thought process linear ICD10 Worksheet Patient Problems: Problems Problem Status Onset Bradycardia Acute End stage kidney disease Acute Hyperkalemia Acute
--- NOTE | 2016-05-19 17:50 | POSTOPPROG ---
Post Op Note Date of Operation: 05/19/16 Surgeon: Guy Blanchard Platinumsmith: CHRIS Rangel MS Anesthesiologist: Miranda Barr MD Anesthesia: GET(General Endotracheal) Pre-op Diagnosis: renal failure Post-op Diagnosis: same Indication: renal failure Procedure: R tunneled dialysis cath placement, L arm AV fistula placement Inf/Abcess present in the surg proc area at time of surgery?: No EBL: Minimal Complications: none Specimen(s): none
[2016-05-19 20:12] VITALS: RESP 18
[2016-05-19] MEDS: oxyCODONE IR 5 MG TAB PO PRN (21:54)
[2016-05-19] MEDS: TEMAZEPAM 15 MG CAP PO PRN (22:09)
[2016-05-19] MEDS: ATORVASTATIN CALCIUM 40 MG TAB PO SCH (22:10)
[2016-05-20 04:49] LABS: % IMMATURE GRANULYOCYTES 0.2 % (0.0-1.1); ABSOLUTE IMMATURE GRANULOCYTES 0.01 10^3/uL (0.00-0.10); ADD DIFF? NO; ADD MORPH? NO; ADD SCAN? NO; ATYPICAL LYMPHOCYTE FLAG 0 (0-99); FRAGMENT RBC FLAG 0 (0-99); HEMATOCRIT 29.7 % (40.0-51.0); HEMOGLOBIN 9.7 g/dL (13.7-17.5); LEFT SHIFT FLG 0 (0-99); LIPEMIA HEMOLYSIS FLAG 80 (0-99); MEAN CELL HEMOGLOBIN CONCENTR. 32.7 g/dL (32.4-36.7); MEAN CELL VOLUME 94.9 fL (81.5-99.8); MEAN PLATELET VOLUME 10.5 fL (8.7-11.7); PLATELET CLUMPS FLAG 0 (0-99); PLATELET COUNT 180 10^3/uL (150-400); RED BLOOD CELL COUNT 3.13 10^6/uL (4.40-6.38); RED CELL DISTRIBUTION WIDTH 13.4 % (11.5-15.2)
[2016-05-20 04:56] VITALS: TEMP 97.6
[2016-05-20 05:01] LABS: ALBUMIN 3.5 g/dL (3.5-5.0); ANION GAP 12 mEq/L (8-16); CALCIUM 8.9 mg/dL (8.5-10.4); CARBON DIOXIDE 19 mEq/l (22-31); CHLORIDE 104 mEq/L (97-110); CREATININE 4.4 mg/dL (0.7-1.3); GLOMERULAR FILTRATION RATE 13; GLUCOSE 207 mg/dL (70-100); POTASSIUM 5.1 mEq/L (3.5-5.2); SODIUM 135 mEq/L (134-144)
[2016-05-20] MEDS: VITAMIN B COMPLEX 1 EA CAP/TAB PO SCH (07:38)
[2016-05-20] MEDS: ACETAMINOPHEN 325 MG TAB PO PRN (07:47)
--- NOTE | 2016-05-20 10:26 | SOAPPROG ---
GISELE Progress Note Assessment/Plan: Assessment: 1. ESRD. HD # 2 today. Will dialyze as outpatient at [facility]. He has been in contact with them but we should contact tomorrow to confirm slot and verify time. 2. Access. Has tunneled HD catheter and new AV fistula. Appreciate Dr. Blanchard. Pt had questions, should discuss lifting restrictions on AVF arm with Dr. Blanchard. Advised nothing > 10 lbs for several weeks. 3. Anemia. Hgb at goal. Continue procrit. 4. Bradycardia. HR tolerating coreg w/o problem. Plan: 05/18/16 22:19 05/18/16 22:21 05/20/16 10:24 05/20/16 10:25 Subjective: Had AVF and tunneled cath placed by Dr. Blanchard yesterday. C/o some pain over cath insertion site. Seen and examined on dialysis. No chest pains, sob. Objective: Vital Signs Temp Pulse Resp BP Pulse Ox 36.4 C 68 18 138/69 H 94 05/20/16 04:00 05/20/16 04:00 05/20/16 04:00 05/20/16 04:00 05/20/16 04:00 Laboratory Results 05/20/16 03:35 05/20/16 03:35 05/19/16 05/20/16 05/21/16 05:59 05:59 05:59 Intake Total 300 950 100 Output Total 920 970 100 Balance -620 -20 0 PT 14.3 SEC (12.0-15.0) 05/16/16 16:14 INR 1.12 (0.83-1.16) 05/16/16 16:14 Comfortable, on hemodialysis Qb 380 RRR, no m/g/r CTAB Abdom soft, nontender R sided tunneled HD catheter in place L wrist AVF - incision c/d/i. Good bruit No edema ICD10 Worksheet Patient Problems: Problems Problem Status Onset Hyperkalemia Acute End stage kidney disease Acute Bradycardia Acute
[2016-05-20 11:57] VITALS: BP 148/80; PULSE 73; O2SAT 92
--- NOTE | 2016-05-20 12:33 | PDIAF ---
- Diagnosis Diagnosis: esrd Code Status: Full Code - Medication Management Discharge Medications: Medications to Continue on Transfer Aspirin [Aspirin 81mg (*)] 81 mg PO HS 07/24/14 [Last Taken 05/15/16 23:50] Herbals/Supplements -Info Only 1 ea PO DAILY 07/24/14 [Last Taken Unknown] Atorvastatin Calcium [Lipitor 40 mg (*)] 40 mg PO HS 05/16/16 [Last Taken 23:50] Multivitamins [Multivitamin (*)] 1 tab PO DAILY@16 05/16/16 [Last Taken 16:00] Vitamin B Complex [B Complex] 1 tab PO DAILY@16 05/16/16 [Last Taken 05/15/16 18 :00] amLODIPine BESYLATE [Norvasc 10 mg (*)] 10 mg PO DAILY 05/16/16 [Last Taken 04/29 11:00] Carvedilol [Coreg (*)] 6.25 mg PO BIDMEAL #60 tab 05/20/16 [Last Taken Unknown] Discharge Medications: Refer to the Discharge Home Medication list for PRN reason. - Orders Services needed: Home Care, Registered Nurse, Physical Therapy, Occupational Therapy Home Care Face to Face: I certify that this patient was under my care and that I had the required [id number] encounter meeting the encounter requirements on the discharge day. My findings support the fact that the patient is homebound as defined in CMS Chapter 7 Medicare Benefits Manual 30.1.1, The condition of the patient is such that there exists a normal inability to leave home and consequently, leaving home would require a considerable and taxing effort. Diet Recommendation: potassium restricted - Follow Up Care Current Providers and Referrals: Patient,NotPresent [Unknown] - As per Instructions
--- NOTE | 2016-05-20 12:37 | SOAPPROG ---
SOAP Progress Note Assessment/Plan: Assessment: 70yo male in need of dialysis access Pt seen and examined by Dr Blanchard earlier today. Per Dr Blanchard pt can go home from surgery perspective with F/U in our office in 10 days. Plan: 05/18/16 12:00 05/20/16 12:36 Objective: Vital Signs Temp Pulse Resp BP Pulse Ox 36.4 C 73 18 148/80 H 92 05/20/16 11:55 05/20/16 11:55 05/20/16 04:00 05/20/16 11:55 05/20/16 11:55 Laboratory Results 05/20/16 03:35 05/20/16 03:35 05/19/16 05/20/16 05/21/16 05:59 05:59 05:59 Intake Total 300 950 100 Output Total 920 970 100 Balance -620 -20 0 PT 14.3 SEC (12.0-15.0) 05/16/16 16:14 INR 1.12 (0.83-1.16) 05/16/16 16:14 ICD10 Worksheet Patient Problems: Problems Problem Status Onset Bradycardia Acute End stage kidney disease Acute Hyperkalemia Acute
[2016-05-20] MEDS: CARVEDILOL 6.25 MG TAB PO SCH (12:42)
[2016-05-20] MEDS ORDERED: HEPARIN 50,000 UNIT/10 ML VIAL ONE (15:00)
--- NOTE | 2016-05-20 18:50 | GDS ---
[f rep st] DISCHARGE SUMMARY DISCHARGE DIAGNOSES: 1. Junctional bradycardia due to hyperkalemia. 2. End-stage renal disease, initiating hemodialysis. 3. Coronary artery disease, status post CABG. 4. Hypertension. 5. Prostate cancer. 6. Right nephrectomy and left obstructive nephropathy resulting in chronic renal failure. HISTORY: The patient is a 70-year-old male, who has end-stage renal disease due to obstructive neph ropathy. It was known that he was progressing towards end-stage renal disease, however, dialysis nguyen d not yet been initiated. He presented to the cardiology office in junctional bradycardia and refer red to the emergency room. He was found to have hyperkalemia and it appeared his renal failure had progressed to the point of needing dialysis. His junctional bradycardia completely resolved with re solution of hyperkalemia, and his Coreg has been resumed. He was dialyzed and a tunnel catheter was placed by Dr. Blanchard. Dr. Blanchard also placed a fistula. He has been arranged for outpatient dialysi s. He received dialysis on the morning of discharge and will follow up for next dialysis as an outp atient on Monday. DISCHARGE MEDICATIONS: Please see computerized record for a full detailed list. New medications: Coreg dose was reduced to 6.25 mg p.o. b.i.d., sodium bicarbonate has been discontinued. ADDITIONAL DISCHARGE INSTRUCTIONS: 1. Follow up with Dr. Blanchard in 10 days. 2. Activity restriction to the fistula arm. No lifting greater than 10 pounds. 3. Outpatient dialysis Monday at the [facility]. 4. Home health PT, OT, VNS arranged. 5. Potassium restricted diet. Greater than 30 minutes' time was spent arranging this discharge. Patient seen and examined by me schuyler garcia the day of discharge. /[id number]/MODL
== END 2016-05-20 16:00 | disposition home health service (06) | DRG 673 ==
LOC: EDUNIT# → F2N 17:31 → OBSVTOIN 17:34 → F2W 05-17 11:28
PROVIDERS: ADMIT Hospitalist; ATTEND Internal Medicine
PROC: 5A1D60Z (ICD-10-PCS; 2016-05-16)
PROC: 02HV33Z Insertion of Infusion Device into Superior Vena Cava, Percutaneous Approach (ICD-10-PCS; 2016-05-16)
PROC: 03180ZF Bypass Left Brachial Artery to Lower Arm Vein, Open Approach (ICD-10-PCS; principal; 2016-05-19 12:00)
DX: I12.0 Hypertensive chronic kidney disease with stage 5 chronic kidney disease or end stage renal disease (principal); N18.6 End stage renal disease; E87.5 Hyperkalemia; I25.10 Atherosclerotic heart disease of native coronary artery without angina pectoris; E78.5 Hyperlipidemia, unspecified; Z95.1 Presence of aortocoronary bypass graft; Z85.46 Personal history of malignant neoplasm of prostate; Z90.5 Acquired absence of kidney
CPT/HCPCS: 82947-QW; 86705-90; 96365; 97161-GP; 97165-GO; C1750; G0472; G8978-GP-CH; G8979-GP-CH; G8980-GP-CH; G8987-GO-CI; G8988-GO-CI; G8989-GO-CI; J0690; J0885; J1100; J1642; J1644; J1815; J2250; J2405; J2440; J2704; J2720; J2765; J3010

== ENCOUNTER → 2016-06-14 | Outpatient (CLI) | payer OTHER, MEDICARE | LOC: BMCIMAGING 13:39 | PROVIDERS: ATTEND Internal Medicine | DX: M25.572 Pain in left ankle and joints of left foot (principal) ==

== ENCOUNTER → 2016-06-20 | Outpatient (CLI) | payer OTHER, MEDICARE | LOC: FCPNEURO 21:00 | PROVIDERS: ATTEND Internal Medicine Sleep Medicine | DX: G47.33 Obstructive sleep apnea (adult) (pediatric) (principal); G47.61 Periodic limb movement disorder ==

== ENCOUNTER → 2016-06-23 | Outpatient (CLI) | payer OTHER, MEDICARE | LOC: BMCIMAGING 13:23 | PROVIDERS: ATTEND Internal Medicine | DX: R22.1 Localized swelling, mass and lump, neck (principal); Z99.2 Dependence on renal dialysis | CPT/HCPCS: 76536-PO ==

== ENCOUNTER 2016-11-15 05:17 | Day surgery (SDC) | payer OTHER, MEDICARE ==
--- NOTE | 2016-11-14 17:08 | GHP ---
[f rep st] PREOP HISTORY AND PHYSICAL DATE OF ADMISSION: 11/15/2016 HISTORY OF PRESENT ILLNESS: The patient is a 71-year-old male with chronic renal failure, who had a left radiocephalic arteriovenous fistula created in May of [address] Blanchard. He is currently us ing the fistula at dialysis under Dr. Beltrán's guidance at [facility], but they are having rj e problems. These are thought to be secondary to a collateral vein of the fistula. Right now they h ave switched over to using his right subclavian tunneled catheter for dialysis. He has no pain compl aints, specifically no signs of steal stent syndrome. PAST MEDICAL HISTORY: Includes coronary artery disease, end-stage renal disease, on hemodialysis, hy pertension, prostate cancer. PAST SURGICAL HISTORY: CABG, AV fistula, tunneled neck catheter, right nephrectomy. MEDICATIONS: Coreg. ALLERGIES: No known drug allergies. PHYSICAL EXAMINATION: GENERAL: Reveals a well-groomed pleasant 71-year-old male, in no acute distre ss. HEENT: Normocephalic, atraumatic. Mucous membranes moist. NECK: Catheter site clean and dry. CARDIAC: Regular rate and rhythm. RESPIRATORY: Clear to auscultation bilaterally. ABDOMEN: Sof t, nontender. EXTREMITIES: Warm and dry. AV fistula with thrill. SPECIAL RESULTS: Ultrasound in the office reveals a collateral vessel to his main AV fistula channel . The fistula thrill does feel stronger upon the collaterals compression. ASSESSMENT AND PLAN: The patient does have several collaterals to his arteriovenous fistula, 1 of wh ich seems to be stealing some flow. We will bring him to the operating room and he will undergo revi logan of his arteriovenous fistula with ligation of venous collaterals. Risks and options have been f ully discussed including, but not limited to, bleeding, infection, clotting steel syndrome, need for alternate access and other problems, and he requests to proceed. /[id number]/MODL
[2016-11-15] MEDS ORDERED: ceFAZolin 2 GM/DEXTROSE 100 ML IV ONE (05:48)
[2016-11-15] MEDS ORDERED: NS 1,000 ML IV ONE (05:50)
[2016-11-15] MEDS ORDERED: LIDOCAINE 1% 2 ML INJ ID PRN (05:50)
[2016-11-15] MEDS ORDERED: THROMBIN (BOVINE) 20,000 UNIT SPRAY TP ONE (06:47)
[2016-11-15] MEDS ORDERED: PROTAMINE SULFATE 50 MG/5 ML VIAL IVP ONE (06:47)
[2016-11-15] MEDS ORDERED: BUPIVACAINE 0.5% 30 ML SDV ONE (06:48)
--- NOTE | 2016-11-15 06:49 | PDANEPAE ---
ANE History of Present Illness 71 yo M in ESRD on MWF HD here for fistula revision ANE Past Medical History - Cardiovascular History Hx Hypertension: Yes Hx Arrhythmias: Yes Hx Chest Pain: No Hx Coronary Artery / Peripheral Vascular Disease: Yes Hx CHF / Valvular Disease: No Hx Palpitations: No Cardiovascular History Comment: hx of junctional les d/t hyperkalemia with hospitalization 05/2016. cad with cabg [address]. see's Dr. Cartagena for personal counselor - Pulmonary History Hx COPD: No Hx Asthma/Reactive Airway Disease: No Hx Recent Upper Respiratory Infection: No Hx Oxygen in Use at Home: No Hx Sleep Apnea: Yes Sleep Apnea Screening Result - Last Documented: Positive Pulmonary History Comment: bernardino positive uses cpap- instructed pt to bring to hospital - Neurologic History Hx Cerebrovascular Accident: No Hx Seizures: No Hx Dementia: No - Endocrine History Hx Diabetes: No - Renal History Hx Renal Disorders: Yes Renal History Comment: ESRD. hx of right nephrectomy as an . left kidney obstructed in 05/2016 resulting in left AVF to be placed. [facility] [place] - Liver History Hx Hepatic Disorders: No - Neurological & Psychiatric Hx Hx Neurological and Psychiatric Disorders: No - Cancer History Hx Cancer: Yes Cancer History Comment: prostate ca with prostatectomy - Congenital Disorder History Hx Congenital Disorders: No - GI History Hx Gastrointestinal Disorders: No - Other Health History Other Health History: wears glasses. rash to chest and back - Chronic Pain History Chronic Pain: No - Surgical History Prior Surgeries: 05/19/16 Left AVF placed to left lower arm with Santo. right nephrectomy as an . cabg 2003. prostatectomy for cancer ANE Review of Systems Review of Systems: - Exercise capacity METS (RN): 4 METS ANE Patient History - Allergies Allergies/Adverse Reactions: No Known Allergies Allergy (Verified 11/14/16 16:57) - Home Medications Home Medications: Aspirin [Aspirin 81mg (*)] 07/24/14 [Last Taken 11/14/16] Atorvastatin Calcium [Lipitor 40 mg (*)] 05/16/16 [Last Taken 05/15/16 23:50] amLODIPine BESYLATE [Norvasc 10 mg (*)] 05/16/16 [Last Taken 05/16/16 11:00] - NPO status NPO Since - Liquids (Date): 11/14/16 NPO Since - Liquids (Time): 21:00 NPO Since - Solids (Date): 11/14/16 NPO Since - Solids (Time): 18:30 - Anes Hx Anes Hx: no prior problems - Smoking Hx Smoking Status: Former smoker - Alcohol Use Alcohol Use: None - Family Anes Hx Family Anes Hx: none Family Hx Anesthesia Complications: none ANE Labs/Vital Signs - Labs Result Diagrams: 11/15/16 05:48 - Vital Signs Blood Pressure: 123/78 Heart Rate: 82 Respiratory Rate: 16 O2 Sat (%): 94 Height: 167.64 cm Weight: 77.111 kg ANE Physical Exam - Airway Neck exam: FROM Mallampati Score: Class 2 Mouth exam: normal dental/mouth exam - Pulmonary Pulmonary: no respiratory distress, clear to auscultation - Cardiovascular Cardiovascular: regular rate and rhythym, no murmur, rub, or gallop - ASA Status ASA Status: III ANE Anesthesia Plan Anesthesia Plan: GA w LMA
[2016-11-15] MEDS ORDERED: MIDAZOLAM 2 MG/2 ML VIAL IVP ONE (06:51)
[2016-11-15 06:57] LABS: ANION GAP 16 mEq/L (8-16); CALCIUM 9.5 mg/dL (8.5-10.4); CARBON DIOXIDE 22 mEq/l (22-31); CHLORIDE 100 mEq/L (97-110); CREATININE 5.4 mg/dL (0.7-1.3); GLOMERULAR FILTRATION RATE 11; GLUCOSE 118 mg/dL (70-100); SODIUM 138 mEq/L (134-144)
[2016-11-15] MEDS ORDERED: fentaNYL 100 MCG/2 ML INJ ONE (07:11)
[2016-11-15] MEDS ORDERED: PROPOFOL 200 MG/20 ML VIAL ONE ×2 (07:11)
[2016-11-15] MEDS ORDERED: NALOXONE HCL 0.4 MG/ML INJ IVP PRN (07:21)
[2016-11-15] MEDS ORDERED: ONDANSETRON 4 MG/2 ML VIAL IVP PRN (07:21)
[2016-11-15] MEDS ORDERED: fentaNYL 100 MCG/2 ML INJ IVP PRN (07:21)
[2016-11-15] MEDS ORDERED: ACETAMINOPHEN 500 MG TAB PO PRN (07:21)
[2016-11-15] MEDS ORDERED: OXYCODONE/APAP 5/325 TAB PO PRN (07:21)
[2016-11-15 07:22] LABS: % IMMATURE GRANULYOCYTES 0.3 % (0.0-1.1); ABSOLUTE IMMATURE GRANULOCYTES 0.02 10^3/uL (0.00-0.10); ADD DIFF? NO; ADD MORPH? NO; ADD SCAN? NO; ATYPICAL LYMPHOCYTE FLAG 0 (0-99); FRAGMENT RBC FLAG 0 (0-99); HEMOGLOBIN 11.3 g/dL (13.7-17.5); LEFT SHIFT FLG 0 (0-99); LIPEMIA HEMOLYSIS FLAG 80 (0-99); MEAN CELL HEMOGLOBIN 34.5 pg (27.9-34.1); MEAN CELL HEMOGLOBIN CONCENTR. 33.2 g/dL (32.4-36.7); MEAN CELL VOLUME 103.7 fL (81.5-99.8); MEAN PLATELET VOLUME 9.6 fL (8.7-11.7); PLATELET CLUMPS FLAG 20 (0-99); PLATELET COUNT 195 10^3/uL (150-400); RED BLOOD CELL COUNT 3.28 10^6/uL (4.40-6.38); RED CELL DISTRIBUTION WIDTH 15.7 % (11.5-15.2)
--- NOTE | 2016-11-15 07:28 | PDHPUP ---
History & Physical Update H&P update statement: This history and physical update is based on an assessment of the patient which was completed after admission or registration (within 24 hours), but prior to the surgery/procedure. H&P update: H&P reviewed & patient examined, no change in patient's condition since H&P completed
--- NOTE | 2016-11-15 08:48 | POSTOPPROG ---
Post Op Note Date of Operation: 11/15/16 Surgeon: Guy Blanchard Fish Stringer Assembler: Mary Castillo Anesthesiologist: Fazal Patel Pre-op Diagnosis: CRF, dialysis access complication Post-op Diagnosis: same Procedure: LUE radiocephalic AVF revision with ligation of collateral veins Inf/Abcess present in the surg proc area at time of surgery?: No EBL: Minimal Complications: none Specimen(s): none
[2016-11-15 09:21] VITALS: RESP 16
[2016-11-15] MEDS ORDERED: OXYCODONE/APAP 5/325 TAB ONE (09:46)
[2016-11-15 09:48] VITALS: O2SAT 92
[2016-11-15 10:12] VITALS: PULSE 64; TEMP 97.9
[2016-11-15 10:45] VITALS: BP 95/55
--- NOTE | 2016-11-15 16:09 | GOP ---
[f rep st] OPERATIVE REPORT DATE OF OPERATION: SURGEON: Guy Blanchard MD OIL PROGRAM COMPLIANCE SPECIALIST: JORDON Dunaway ANESTHESIOLOGIST: Dr. Patel. Had appropriate vitals signs. PREOPERATIVE DIAGNOSIS: Chronic renal failure with atrioventricular fistula with some enlarging ernesto aterals. POSTOPERATIVE DIAGNOSIS: Chronic renal failure with atrioventricular fistula with some enlarging col laterals. PROCEDURE PERFORMED: Ultrasound mapping of the left arm with atrioventricular fistula revision with ligation of collaterals. FINDINGS: Patient was found to have a 4 separate collaterals which were ligated adjacent to the main tract of the AV fistula, with some apparent increase in flow in the main body of the fistula. ESTIMATED BLOOD LOSS: Negligible. DESCRIPTION OF PROCEDURE: The patient was taken to the operating room where he received satisfactory general endotracheal anesthesia by Dr. Patel. He was placed in the supine position with his left ar m outstretched on an arm board. He was prepped and draped in usual sterile fashion. Using ultrasoun d, the AV fistula was mapped and multiple collateral veins were marked with ultrasound guidance. Sev eral short vertical incisions were made over these collateral veins, which were then dissected free f rom the subcutaneous tissue. They were then ligated with 2-0 silk ties adjacent but not abutting the AV fistula. Hemostasis was assured. Wounds were infiltrated after Marcaine and these short incisio ns were closed with 4-0 Monocryl subcuticular stitch. He tolerated procedure well. The AV fistula w as still functioning well after completion of the procedure and in fact, felt somewhat stronger. He was taken to recovery room in good condition. COMPLICATIONS: There were no complications. /[id number]/MODL
--- NOTE | 2016-11-16 08:27 | POSTANESTH ---
Post Anesthetic Evaluation Cardiovascular Status: Normal, Stable, Similar to Pre-Op Cond Respiratory Status: Normal, Stable, Similar to Pre-op Cond. Level of Consciousness/Mental Status: Can Participate in Eval, Alert and Oriented Pain Control: Adequate, Prn Tx Ordered Nausea/Vomiting Control: Adequate, Prn Tx Ordered Complications Possibly Related to Anesthesia: None Noted
== END 2016-11-15 10:43 | disposition home or self-care (01) ==
LOC: FSGY 05:17
PROVIDERS: ATTEND Surgery
PROC: 03WY0JZ Revision of Synthetic Substitute in Upper Artery, Open Approach (ICD-10-PCS; principal; 2016-11-15 07:15)
DX: N18.9 Chronic kidney disease, unspecified (principal)
CPT/HCPCS: J0690; J1644; J2250; J2704; J2720; J3010

== ENCOUNTER 2016-11-18 10:57 | Emergency (ER) | payer OTHER, MEDICARE ==
--- NOTE | 2016-11-18 11:33 | EDPHY ---
H & P Stated Complaint: HICCUPS POST SURGERY Time Seen by Provider: 11/18/16 11:33 - Personal History Current Tetanus Diphtheria and Acellular Pertussis (TDAP): Yes Tetanus Vaccine Date: < 10 YEARS - Medical/Surgical History Hx Asthma: No Hx Chronic Respiratory Disease: No Hx Diabetes: No Hx Cardiac Disease: Yes Hx Renal Disease: Yes Hx Cirrhosis: No Hx Alcoholism: No Hx HIV/AIDS: No Hx Splenectomy or Spleen Trauma: No Other PMH: right nephrectomy, CABG in 2004, prostatectomy, HTN - Social History Smoking Status: Former smoker Constitutional: Initial Vital Signs Temperature (C) 37.9 C 11/18/16 11:07 Heart Rate 109 H 11/18/16 11:07 Respiratory Rate 18 11/18/16 11:07 Blood Pressure 136/82 H 11/18/16 11:07 O2 Sat (%) 94 11/18/16 11:07 O2 Delivery Mode Room Air Allergies/Adverse Reactions: No Known Allergies Allergy (Verified 11/18/16 11:10) Home Medications: Medication Instructions Recorded Aspirin [Aspirin 81mg (*)] 07/24/14 Atorvastatin Calcium [Lipitor 40 05/16/16 mg (*)] amLODIPine BESYLATE [Norvasc 10 mg 05/16/16 (*)] Medical Decision Making ED Course/Re-evaluation: CHIEF COMPLAINT: Hiccups post-procedure HISTORY OF PRESENT ILLNESS: This patient is a 71 y/o male s/p atrioventricular fistula revision on Monday with Dr. Blanchard complaining of hiccups ongoing since that time. He was intubated for the procedure, and believes this may have triggered his hiccoughs. He has been unable to sleep well due to consistent hiccoughing. He sleeps with CPAP which relieved his symptoms slightly, but they return when he removes his mask. He endorses sore throat. He has not taken any over the counter or other treatments to relieve symptoms. He denies fever, cough, vomiting, diarrhea, or other associated symptoms. REVIEW OF SYSTEMS: A 10 point review of systems was performed and is negative with the exception of the elements mentioned in the history of present illness. PHYSICAL EXAM: HR, BP, O2 Sat, RR. Temp noted General Appearance: Alert, well hydrated, appropriate, and non-toxic appearing. Head: Atraumatic without scalp tenderness or obvious injury Eyes: Pupils equal, round, reactive to light and accommodation, EOMI, no trauma , no injection. Ears: Clear bilaterally, no perforation, normal landmarks Nose: Atraumatic, no rhinorrhea, clear. Throat: There is no erythema or exudates, no lesions, normal tonsils, mucus membranes moist. Neck: Supple, 2+ carotid upstroke, nontender, no lymphadenopathy. Respiratory: No retractions, no distress, no wheezes, and no accessory muscle use. Lungs are clear to auscultation bilaterally. Cardiovascular: Regular rate and rhythm, no murmurs, rubs, or gallops. Bilateral carotid, radial, dorsalis pedis, and posterior tibial pulses intact. Good capillary refill all extremities. Gastrointestinal: Abdomen is soft, nontender, non-distended, no masses, no rebound, no guarding, no peritoneal signs. Musculoskeletal: Normal active ROM of all extremities, atraumatic. Neurological: Alert, appropriate, and interactive. The patient has normal DTRs and non-focal cranial nerves, motor, sensory, and cerebellar exam. Skin: No rashes, good turgor, no nodules on palpation. Past medical history: Hypertension, CABG in 2003 Past surgical history: Prostatectomy, Right nephrectomy, fistula placement Family history: Noncontributory Social history: Lives in [place]. Retired. Single. DIFFERENTIAL DIAGNOSIS: Includes but not limited to postoperative hiccups due to vagus or phrenic nerve stimulation, diaphragmatic injury, other diaphragmatic causes. MEDICAL DECISION MAKIN71 y/o male presents with three day history of hiccups s/p procedure under general anesthesia. Plan to administer 25mg PO Thorazine for symptom relief. On reassessment, the patient is sleeping. Plan to discharge home in good condition with an additional 25g PO Thorazine to take if hiccups recur. The patient's hiccups did recur upon waking. Plan to administer an additional 25mg PO Thorazine. The patient responded well. Plan to d/c home in good condition. He will follow up with Dr. Blanchard as needed for routine post-surgical care or with his primary care provider for continued concerns. Return precautions discussed. The patient is comfortable with this plan. - Data Points Medications Given: Discontinued Medications Chlorpromazine HCl (Thorazine) 25 mg PO EDNOW ONE Stop: 11/18/16 12:15 Last Admin: 10/06/17 12:53 Dose: 25 mg Chlorpromazine HCl (Thorazine) 25 mg PO EDNOW ONE Stop: 11/18/16 14:04 Last Admin: 11/18/16 14:05 Dose: Not Given Departure - Departure Disposition: Home, Routine, Self-Care Clinical Impression: Hiccoughs Condition: Good Instructions: Hiccups (ED) Additional Instructions: 1. Take Thorazine as prescribed as needed for continued hiccups. 2. Return for shortness of breath, chest pain, fever, or other worsening of condition. Referrals: Claudia Cantu MD [Primary Care Provider] - As per Instructions Report Scribed for: Ernesto Carbone Report Scribed by: Louise Beltre Date of Report: 11/18/16 Time of Report: 18:03
[2016-11-18] MEDS ORDERED: chlorproMAZINE HCL 25 MG TAB PO ONE ×2 (12:14→14:03)
[2016-11-18 13:07] VITALS: RESP 16
[2016-11-18] MEDS ORDERED: chlorproMAZINE HCL 50 MG in NS 50 ML IV ONE (13:58)
[2016-11-18 15:05] VITALS: BP 124/72; PULSE 75; TEMP 98.6; O2SAT 98
== END 2016-11-18 15:05 | disposition home or self-care (01) ==
DX: R06.6 Hiccough (principal); I10 Essential (primary) hypertension; Z95.1 Presence of aortocoronary bypass graft; Z87.891 Personal history of nicotine dependence; Z79.82 Long term (current) use of aspirin
CPT/HCPCS: J3230

== ENCOUNTER → 2017-02-11 | Outpatient (CLI) | payer OTHER, MEDICARE | LOC: FIMAGING 13:33 | PROVIDERS: ATTEND Psychiatry & Neurology Neurology | DX: D32.0 Benign neoplasm of cerebral meninges (principal); G50.0 Trigeminal neuralgia; H92.01 Otalgia, right ear ==

== ENCOUNTER → 2017-04-18 | Outpatient (CLI) | payer OTHER, MEDICARE | LOC: BMCIMAGING 10:29 | PROVIDERS: ATTEND Internal Medicine | DX: R05 Cough (principal); I27.20 Pulmonary hypertension, unspecified; Z95.1 Presence of aortocoronary bypass graft; Z99.2 Dependence on renal dialysis ==

== ENCOUNTER 2017-04-20 09:14 | Day surgery (SDC) | payer OTHER, MEDICARE ==
[2017-04-20] MEDS ORDERED: BENZOCAINE UNIT DOSE SPRAY HURRICAINE MM ONE (09:17)
[2017-04-20] MEDS ORDERED: MIDAZOLAM 2 MG/2 ML VIAL IVP ONE (09:17)
[2017-04-20] MEDS ORDERED: fentaNYL 100 MCG/2 ML INJ IVP ONE (09:17)
[2017-04-20] MEDS ORDERED: NS 500 ML IV ONE (09:17)
[2017-04-20] MEDS ORDERED: ATROPINE SULFATE 1 MG/10 ML SYR IVP ONE (09:17)
--- NOTE | 2017-04-20 09:35 | CPEKG ---
Heart Rate: 84 RR Interval: 714 QRSD Interval: 112 QT Interval: 480 QTC Interval: 568 QRS [place]: 94 T Wave [place]: 52 EKG Severity - ABNORMAL ECG - EKG Impression: ATRIAL FLUTTER EKG Impression: NONSPECIFIC INTRAVENTRICULAR CONDUCTION DELAY Electronically Signed By: Mikhail Durham 20-Apr-2017 11:03:17
--- NOTE | 2017-04-20 10:26 | PDANEPAE ---
ANE History of Present Illness 71 yo for allison/cv ANE Past Medical History - Cardiovascular History Hx Hypertension: Yes Hx Arrhythmias: Yes Hx Chest Pain: No Hx Coronary Artery / Peripheral Vascular Disease: Yes Hx CHF / Valvular Disease: No Hx Palpitations: No Cardiovascular History Comment: hx of junctional les d/t hyperkalemia with hospitalization 05/2016. cad with cabg 2003. see's [address] Cartagena for filter cleaner - Pulmonary History Hx COPD: No Hx Asthma/Reactive Airway Disease: No Hx Recent Upper Respiratory Infection: No Hx Oxygen in Use at Home: No Hx Sleep Apnea: Yes Pulmonary History Comment: bernardino positive uses cpap- instructed pt to bring to hospital - Neurologic History Hx Cerebrovascular Accident: No Hx Seizures: No Hx Dementia: No - Endocrine History Hx Diabetes: No - Renal History Hx Renal Disorders: Yes Renal History Comment: ESRD. hx of right nephrectomy as an infant. left kidney obstructed in 05/2016 resulting in left AVF to be placed. [facility] [place] - Liver History Hx Hepatic Disorders: No - Neurological & Psychiatric Hx Hx Neurological and Psychiatric Disorders: No - Cancer History Hx Cancer: Yes Cancer History Comment: prostate ca with prostatectomy - Congenital Disorder History Hx Congenital Disorders: No - GI History Hx Gastrointestinal Disorders: No - Other Health History Other Health History: wears glasses. rash to chest and back - Chronic Pain History Chronic Pain: No - Surgical History Prior Surgeries: 05/19/16 Left AVF placed to left lower arm with Santo. right nephrectomy as an infant. cabg 2003. prostatectomy for cancer ANE Review of Systems Review of Systems: - Exercise capacity METS (RN): 3 METS ANE Patient History - Allergies Allergies/Adverse Reactions: No Known Allergies Allergy (Verified 11/18/16 11:10) - Home Medications Home medications: home medication list seen and reviewed Home Medications: Aspirin [Aspirin 81mg (*)] 81 mg PO DAILY 07/24/14 [Last Taken 04/19/17] Atorvastatin Calcium [Lipitor 40 mg (*)] 40 mg PO DAILY 05/16/16 [Last Taken 08/30] amLODIPine BESYLATE [Norvasc 10 mg (*)] 2.5 mg PO DAILY 05/16/16 [Last Taken 08/30] Apixaban [Eliquis] 5 mg PO BID 04/20/17 [Last Taken 04/20/17] Metoprolol Tartrate 12.5 mg PO DAILY 04/20/17 [Last Taken 04/19/17] - NPO status NPO Status: no food or drink >8 hours - Anes Hx Anes Hx: no prior problems - Smoking Hx Smoking Status: Former smoker - Family Anes Hx Family Hx Anesthesia Complications: none ANE Labs/Vital Signs - Labs Result Diagrams: 04/20/17 09:50 - Vital Signs Height: 5 ft 7 in Weight: 75 kg ANE Physical Exam - Airway Neck exam: FROM Mallampati Score: Class 2 Mouth exam: normal dental/mouth exam - Pulmonary Pulmonary: no respiratory distress - Cardiovascular Cardiovascular: regular rate and rhythym - ASA Status ASA Status: IV ANE Anesthesia Plan Anesthesia Plan: GA with mask, MAC
[2017-04-20] MEDS ORDERED: PROPOFOL 200 MG/20 ML VIAL ONE (10:27)
[2017-04-20 10:30] LABS: INR 1.49 (0.83-1.16); PROTIME(PATIENT) 18.2 SEC (12.0-15.0)
--- NOTE | 2017-04-20 10:51 | POSTANESTH ---
Post Anesthetic Evaluation Cardiovascular Status: Normal, Stable Respiratory Status: Normal, Stable Level of Consciousness/Mental Status: Can Participate in Eval Pain Control: Adequate, Prn Tx Ordered Nausea/Vomiting Control: Adequate, Prn Tx Ordered Complications Possibly Related to Anesthesia: None Noted
--- NOTE | 2017-04-20 10:51 | PDTEE1 ---
TACHO Cardioversion Procedure Procedure: transesophageal echo Indications: other (Atrial flutter) Consent: signed and in chart Anticoagulation: eliquis Procedural Details: Consents for anesthesia, TACHO, and possible cardioversion were signed and in chart. Risks and benefits of the procedures were discussed with the patient and friend. Cardioversion pads were placed to anterior and posterior chest. Anesthesia was induced, and TACHO probe was placed without difficulty and standard views were obtained. Preliminary TACHO report: Grossly normal LVEF with normal ventricular chamber dimensions. Borderline biatrial dilation was noted. Moderate mitral regurgitation was noted. There was spontaneous contrast "smoke" noted to the atria bilaterally. Bubble contrast injection was without right to left passage noted. There was haziness to the apex of the left atrial appendage. The appendage itself was large. Velocities were also noted to be below 40. Grossly normal tricuspid valve with mildly thickened leaflets. There is a port noted to the right atrium. Trileaflet aortic valve without appreciable sclerosis/stenosis noted. Given the appearance of possible thrombus to the apex of the GERMAN (and the fact that the patient was only on Eliquis for one day), would have reassessment of the TACHO in two weeks to determine if there continues to be similar findings. I contacted Dr. Claudio Cartagena ([facility] patient) to relay this find. No cardioversion was performed. Results: other (atrial flutter with controlled ventricular response.) Conclusions: successful TACHO Conclusion Comment: would arrange for outpatient repeat TACHO in about two weeks with continued, uninterrupted use of Eliquis for that time period. Patient Problems: Problems Problem Status Onset Bradycardia Acute End stage kidney disease Acute Hyperkalemia Acute
--- NOTE | 2017-04-20 14:42 | ECHO ---
[email or web address] [address] [address] Main: [phone] Fax: Transesophageal Echocardiography Name: NEVILLE ESQUIVEL MR#: [id number] Study Date: 04/20/2017 Study Time: 10:19 AM Date of : 1945 Age: 71 year(s) Height: ( ) Weight: ( ) BSA: Gender: Male Examination: TACHO Indication: Atrial Fibrillation Image Quality: Contrast: Requested by: Mikhail Fernandes Heart Rate: Rhythm: BP: / Procedure Staff Dehorner: Desire Irvin MINDI Reading Physician: Mikhail Fernandes MD Requesting Provider: TACHO Exam Details Conclusions: An agitated saline study was performed and was negative for intracardiac shunting. Cannot R/O GERMAN thrombus (cardioversion canceled). Port visualized in the RA.. Moderate mitral valve regurgitation is present. Mild plaque visualized in the descending aorta.. There is suspicious echodensity to the apex of the left atrial appendage. Measurements: Chambers Valvular Assessment AV/MV Valvular Assessment TV/PV Normal Normal Normal Name Value Range Name Value Range Name Value Range Additional Measurements: Findings: Left Atrium: An agitated saline study was performed and was negative for intracardiac shunting. Cannot R/O GERMAN thrombus (cardioversion canceled). Right Atrium: Port visualized in the RA.. Mitral Valve: Moderate mitral valve regurgitation is present. Patient: NEVILLE ESQUIVEL Study Date: 04/20/2017 Page 1 of 2 10:19 AM Aorta: Mild plaque visualized in the descending aorta.. l1n (No Signature Object) Patient: NEVILLE ESQUIVEL Study Date: 04/20/2017 Page 2 of 2 10:19 AM [id number]
== END 2017-04-20 12:28 | disposition home or self-care (01) ==
LOC: FCATH 09:14
PROVIDERS: ATTEND Internal Medicine Cardiovascular Disease
PROC: B245ZZ4 Ultrasonography of Left Heart, Transesophageal (ICD-10-PCS; principal; 2017-04-20)
DX: I48.92 Unspecified atrial flutter (principal); I25.10 Atherosclerotic heart disease of native coronary artery without angina pectoris; E78.00 Pure hypercholesterolemia, unspecified; N18.6 End stage renal disease; Z99.2 Dependence on renal dialysis; Z95.1 Presence of aortocoronary bypass graft; Z85.46 Personal history of malignant neoplasm of prostate; Z87.891 Personal history of nicotine dependence
CPT/HCPCS: J0461; J2704

== ENCOUNTER 2017-04-25 14:15 | Emergency (ER) | payer OTHER, MEDICARE ==
[2017-04-25] MEDS ORDERED: NS 1,000 ML IV ONE (15:04)
--- NOTE | 2017-04-25 15:07 | EDPHY ---
H & P Stated Complaint: abdominal pain starting this morning Time Seen by Provider: 04/25/17 14:53 HPI/ROS: CHIEF COMPLAINT: Abdominal pain HISTORY OF PRESENT ILLNESS: The patient is a 71-year-old man with a history of 3 vessel CABG in 0 4, renal failure with right nephrectomy on hemodialysis and intermittent atrial fib on Eliquis. He had a TACHO 5 days ago to prepare for cardioversion but an atrial clot was seen and cardioversion delayed. He states that today he began feeling nauseous and having bilateral lower abdominal pain. No vomiting. No diarrhea. No urinary symptoms. No fever. His symptoms have now resolved. While he was having them however he called his laser beam color scanner operator' s office who recommended he come to the ER. He states that he does have a chronic cough and wondered if it had anything to do with muscle pain from coughing. REVIEW OF SYSTEMS: Constitutional: denies: chills, fever, recent illness, recent injury EENTM: denies: blurred vision, double vision, nose congestion Respiratory: denies: cough, shortness of breath Cardiac: denies: chest pain, irregular heart rate, lightheadedness, palpitations Gastrointestinal/Abdominal: See HPI Genitourinary: denies: dysuria, frequency, hematuria, pain Musculoskeletal: denies: joint pain, muscle pain Skin: denies: lesions, rash, jaundice, bruising Neurological: denies: headache, numbness, paresthesia, tingling, dizziness, weakness Hematologic/Lymphatic: denies: blood clots, easy bleeding, easy bruising Immunologic/allergic: denies: HIV/AIDS, transplant EXAM: GENERAL: Well-appearing, well-nourished and in no acute distress. HEAD: Atraumatic, normocephalic. EYES: Pupils equal round and reactive to light, extraocular movements intact, sclera anicteric, conjunctiva are normal. ENT: TMs normal, nares patent, oropharynx clear without exudates. Moist mucous membranes. NECK: Normal range of motion, supple without lymphadenopathy or JVD. LUNGS: Breath sounds clear to auscultation bilaterally and equal. No wheezes rales or rhonchi. HEART: Regular rate and rhythm without murmurs, rubs or gallops. ABDOMEN: Soft, nontender, normoactive bowel sounds. No guarding, no rebound. No masses appreciated. BACK: No CVA tenderness, no spinal tenderness, step-offs or deformities EXTREMITIES: Normal range of motion, no pitting or edema. No clubbing or cyanosis. NEUROLOGICAL: Cranial nerves II through XII grossly intact. Normal speech, normal gait. 5/5 strength, normal movement in all extremities, normal sensation PSYCH: Normal mood, normal affect. SKIN: Warm, dry, normal turgor, no visible rashes or lesions. Source: Patient Exam Limitations: No limitations - Personal History Current Tetanus/Diphtheria Vaccine: Yes Current Tetanus Diphtheria and Acellular Pertussis (TDAP): Yes Tetanus Vaccine Date: < 10 YEARS - Medical/Surgical History Hx Asthma: No Hx Chronic Respiratory Disease: No Hx Diabetes: No Hx Cardiac Disease: Yes Hx Renal Disease: Yes Hx Cirrhosis: No Hx Alcoholism: No Hx HIV/AIDS: No Hx Splenectomy or Spleen Trauma: No Other PMH: right nephrectomy, CABG in 2003, prostatectomy, HTN, afib - Family History Significant Family History: No pertinent family hx - Social History Smoking Status: Former smoker Alcohol Use: None Drug Use: None Constitutional: Initial Vital Signs Temperature (C) 37 C 04/25/17 14:23 Heart Rate 97 04/25/17 14:23 Respiratory Rate 20 04/25/17 14:23 Blood Pressure 161/99 H 04/25/17 14:23 O2 Sat (%) 92 04/25/17 14:23 O2 Delivery Mode Room Air Allergies/Adverse Reactions: No Known Allergies Allergy (Verified 04/25/17 14:23) Home Medications: Medication Instructions Recorded Aspirin [Aspirin 81mg (*)] 81 mg PO DAILY 07/24/14 Atorvastatin Calcium [Lipitor 40 40 mg PO DAILY 05/16/16 mg (*)] amLODIPine BESYLATE [Norvasc 10 mg 2.5 mg PO DAILY 05/16/16 (*)] Apixaban [Eliquis] 5 mg PO BID 04/20/17 Metoprolol Tartrate 12.5 mg PO DAILY 04/20/17 Medical Decision Making - Diagnostics EKG Interpretation: An EKG obtained and was read and documented in trace view. Please see trace view for full reading and report. Atrial fibrillation/flutter, unchanged from previous Imaging: Discussed imaging studies w/ will call clerk Radiologist ED Course/Re-evaluation: The 3:30 p.m. I discussed the case with Dr. Bustos the patient's forge hand. He requests the patient does not get CT contrast because she still has some residual renal function. Will perform the CT without. 4:00 p.m. We discussed the CT results and lab work thus far which is all reassuring. The patient is anemic but this is baseline. The patient has gallstones but denies having any upper abdominal pain or tenderness today. He states that he already new about them and that they have never caused him pain. He is happy with this and is currently asymptomatic and is eager to go home. We discussed indications for returning. Differential Diagnosis: Partial list of the Differential diagnosis considered include but were not limited to; lower abdominal pain, urinary tract infection, kidney stone and although unlikely based on the history and physical exam, I also considered appendicitis, diverticulitis, hemorrhage, thrombus, obstruction, ischemia. I discussed these differential diagnoses and the plan with the patient as well as the usual and expected course. The patient understands that the diagnosis is provisional and that in medicine we are not always correct and that further workup is often warranted. Usual and customary warnings were given. All of the patient's questions were answered. The patient was instructed to return to the emergency department should the symptoms at all worsen or return, otherwise to followup with the physician as we discussed. - Data Points Laboratory Results: Laboratory Results 04/25/17 15:25 04/25/17 16:39 Medications Given: Discontinued Medications Sodium Chloride (Ns) 1,000 mls @ 0 mls/hr IV EDNOW ONE; Wide Open PRN Reason: Protocol Stop: 04/25/17 15:05 Last Admin: 04/25/17 15:59 Dose: Not Given Departure - Departure Disposition: Home, Routine, Self-Care Clinical Impression: Abdominal pain Qualifiers: Abdominal location: lower abdomen, unspecified Qualified Code(s): R10.30 - Lower abdominal pain, unspecified Condition: Fair Instructions: Abdominal Pain (ED) Referrals: Claudia Cantu MD [Primary Care Provider] - 1-2 days without fail
--- NOTE | 2017-04-25 15:21 | CPEKG ---
Heart Rate: 98 RR Interval: 612 QRSD Interval: 108 QT Interval: 404 QTC Interval: 516 QRS [place]: 28 T Wave [place]: 8 EKG Severity - ABNORMAL ECG - EKG Impression: ATRIAL FLUTTER, A-RATE 258 EKG Impression: BORDERLINE PROLONGED QT INTERVAL Electronically Signed By: Carrillo Muhammad 25-Apr-2017 15:23:42
[2017-04-25 15:54] LABS: PLATELET COUNT 248 10^3/uL (150-400)
[2017-04-25 16:54] VITALS: O2SAT 94
[2017-04-25 17:24] LABS: INR 1.54 (0.83-1.16); PROTIME(PATIENT) 18.6 SEC (12.0-15.0)
[2017-04-25 18:03] VITALS: BP 166/88; PULSE 82; RESP 16; TEMP 97.3
== END 2017-04-25 18:11 | disposition home or self-care (01) ==
DX: R10.30 Lower abdominal pain, unspecified (principal); I10 Essential (primary) hypertension; Z79.82 Long term (current) use of aspirin; Z95.1 Presence of aortocoronary bypass graft

== ENCOUNTER → 2017-05-16 | Outpatient (CLI) | payer OTHER, MEDICARE | LOC: BHFA 14:00 | PROVIDERS: ATTEND Internal Medicine Cardiovascular Disease | DX: I25.10 Atherosclerotic heart disease of native coronary artery without angina pectoris (principal); R06.02 Shortness of breath | CPT/HCPCS: 78452; 93017; A9500; J2785 ==

== ENCOUNTER 2017-05-30 08:22 | Day surgery (SDC) | payer OTHER, MEDICARE ==
[2017-05-30] MEDS ORDERED: ATROPINE SULFATE 1 MG/10 ML SYR IVP ONE (08:25)
[2017-05-30] MEDS ORDERED: BENZOCAINE UNIT DOSE SPRAY HURRICAINE MM ONE (08:25)
[2017-05-30] MEDS ORDERED: fentaNYL 100 MCG/2 ML INJ IVP ONE (08:25)
[2017-05-30] MEDS ORDERED: MIDAZOLAM 2 MG/2 ML VIAL IVP ONE (08:25)
[2017-05-30] MEDS ORDERED: NS 500 ML IV ONE (08:25)
--- NOTE | 2017-05-30 08:42 | CPEKG ---
Heart Rate: 97 RR Interval: 619 QRSD Interval: 114 QT Interval: 392 QTC Interval: 498 QRS [place]: 162 T Wave [place]: -4 EKG Severity - ABNORMAL ECG - EKG Impression: A-FLUTTER W/ PREDOM 3:1 AV BLOCK, A-RATE 267 EKG Impression: Right ventricular conduction defect EKG Impression: No significant change from April 25, 2017 Electronically Signed By: Иван Worthy 30-May-2017 10:46:31
[2017-05-30] MEDS ORDERED: APIXABAN 5 MG TAB ONE (08:55)
[2017-05-30] MEDS ORDERED: APIXABAN 5 MG TAB PO ONE (09:00)
[2017-05-30 09:25] LABS: INR 1.44 (0.83-1.16); PROTIME(PATIENT) 17.7 SEC (12.0-15.0)
[2017-05-30] MEDS ORDERED: PROPOFOL 200 MG/20 ML VIAL ONE ×2 (10:28)
--- NOTE | 2017-05-30 10:37 | PDANEPAE ---
ANE History of Present Illness atrial flutter ANE Past Medical History - Cardiovascular History Hx Hypertension: Yes Hx Arrhythmias: Yes Hx Chest Pain: No Hx Coronary Artery / Peripheral Vascular Disease: Yes Hx CHF / Valvular Disease: No Hx Palpitations: No Cardiovascular History Comment: hx of junctional les d/t hyperkalemia with hospitalization 05/2016. cad with cabg 2003. 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 hx of right nephrectomy as an . left kidney obstructed in 05/2016 resulting in left AVF to be placed. [facility] [place] - Liver History Hx Hepatic Disorders: No - Neurological & Psychiatric Hx Hx Neurological and Psychiatric Disorders: No - Cancer History Hx Cancer: Yes Cancer History Comment: prostate ca with prostatectomy - Congenital Disorder History Hx Congenital Disorders: No - GI History Hx Gastrointestinal Disorders: No - Other Health History Other Health History: wears glasses. rash to chest and back - Chronic Pain History Chronic Pain: No - Surgical History Prior Surgeries: 05/19/16 Left AVF placed to left lower arm with Santo. right nephrectomy as an infant. cabg 2003. prostatectomy for cancer ANE Review of Systems Review of Systems: - Exercise capacity METS (RN): 3 METS ANE Patient History - Allergies Allergies/Adverse Reactions: No Known Allergies Allergy (Verified 04/25/17 14:23) - Home Medications Home Medications: Aspirin [Aspirin 81mg (*)] 81 mg PO DAILY 07/24/14 [Last Taken 1 Day Ago ~] Atorvastatin Calcium [Lipitor 40 mg (*)] 40 mg PO DAILY 05/16/16 [Last Taken 1 Day Ago ~05/29/17] amLODIPine BESYLATE [Norvasc 10 mg (*)] 2.5 mg PO DAILY 05/16/16 [Last Taken 1 Day Ago ~05/29/17] Apixaban [Eliquis] 5 mg PO BID 04/20/17 [Last Taken 05/30/17 09:06] Metoprolol Tartrate 12.5 mg PO DAILY 04/20/17 [Last Taken 1 Day Ago ~05/29/17] - Smoking Hx Smoking Status: Former smoker - Family Anes Hx Family Hx Anesthesia Complications: none ANE Labs/Vital Signs - Labs Result Diagrams: 05/30/17 08:50 - Vital Signs Height: 170.18 cm Weight: 75.296 kg ANE Physical Exam - Airway Neck exam: decreased ROM Mallampati Score: Class 3 (short TMD) Mouth exam: normal dental/mouth exam - Pulmonary Pulmonary: clear to auscultation - Cardiovascular Cardiovascular: irregularly irregular - ASA Status ASA Status: III ANE Anesthesia Plan Anesthesia Plan: GA with mask
--- NOTE | 2017-05-30 10:50 | PDHPUP ---
History & Physical Update H&P update statement: This history and physical update is based on an assessment of the patient which was completed after admission or registration (within 24 hours), but prior to the surgery/procedure. H&P update: changes noted
[2017-05-30] MEDS ORDERED: WARFARIN SODIUM 5 MG TAB PO ONE (12:00)
[2017-05-30] MEDS ORDERED: ASPIRIN 81 MG CHEWABLE TAB PO ONE (12:00)
== END 2017-05-30 11:55 | disposition home or self-care (01) ==
LOC: FCATH 08:22
PROVIDERS: ATTEND Internal Medicine
DX: I48.91 Unspecified atrial fibrillation (principal); I48.92 Unspecified atrial flutter; R06.09 Other forms of dyspnea; R05 Cough; I25.10 Atherosclerotic heart disease of native coronary artery without angina pectoris; N18.6 End stage renal disease; G47.33 Obstructive sleep apnea (adult) (pediatric); I12.0 Hypertensive chronic kidney disease with stage 5 chronic kidney disease or end stage renal disease; Z79.01 Long term (current) use of anticoagulants; Z79.82 Long term (current) use of aspirin; Z85.46 Personal history of malignant neoplasm of prostate; Z95.1 Presence of aortocoronary bypass graft; Z90.5 Acquired absence of kidney; Z99.2 Dependence on renal dialysis; Z53.09 Procedure and treatment not carried out because of other contraindication; Z91.14 Patient's other noncompliance with medication regimen
CPT/HCPCS: J2704

== ENCOUNTER → 2017-06-08 | Outpatient (CLI) | payer OTHER, MEDICARE | LOC: BMCIMAGING 13:08 | PROVIDERS: ATTEND Internal Medicine | DX: R09.89 Other specified symptoms and signs involving the circulatory and respiratory systems (principal); I51.7 Cardiomegaly ==

== ENCOUNTER 2017-07-11 10:25 | Day surgery (SDC) | payer OTHER, MEDICARE ==
[2017-07-11] MEDS ORDERED: MIDAZOLAM 2 MG/2 ML VIAL IVP ONE (10:36)
[2017-07-11] MEDS ORDERED: NS 500 ML IV ONE (10:36)
[2017-07-11] MEDS ORDERED: ATROPINE SULFATE 1 MG/10 ML SYR IVP ONE (10:36)
[2017-07-11] MEDS ORDERED: BENZOCAINE UNIT DOSE SPRAY HURRICAINE MM ONE (10:36)
[2017-07-11] MEDS ORDERED: fentaNYL 100 MCG/2 ML INJ IVP ONE (10:36)
--- NOTE | 2017-07-11 10:58 | CPEKG ---
Heart Rate: 62 RR Interval: 968 QRSD Interval: 118 QT Interval: 500 QTC Interval: 508 QRS [place]: 87 T Wave [place]: -53 EKG Severity - ABNORMAL ECG - EKG Impression: A-FLUTTER W/ VARIED AV BLOCK, A-RATE 241 (ATYPICAL) EKG Impression: INCOMPLETE RIGHT BUNDLE BRANCH BLOCK Electronically Signed By: Oliver Diop 11-Jul-2017 15:03:45
[2017-07-11 11:23] LABS: INR 2.47 (0.83-1.16); PROTIME(PATIENT) 26.7 SEC (12.0-15.0)
--- NOTE | 2017-07-11 11:47 | PDHPUP ---
History & Physical Update H&P update statement: This history and physical update is based on an assessment of the patient which was completed after admission or registration (within 24 hours), but prior to the surgery/procedure. pt to have allison /cv for a flutter and f/u w EP knows risks and options H&P update: H&P reviewed & patient examined, no change in patient's condition since H&P completed H&P changes: none
[2017-07-11] MEDS ORDERED: PROPOFOL 200 MG/20 ML VIAL ONE (11:48)
--- NOTE | 2017-07-11 12:00 | PDTEE1 ---
TACHO Cardioversion Procedure Procedure: transesophageal echo Indications: other (a flutter) Consent: signed and in chart Anticoagulation: warfarin Procedural Details: Pads were placed in anterior-posterior position. TACHO probe was advanced and standard images obtained. There is no evidence of left atrial or left atrial appendage thrombus. Synchronized cardioversion attempt #1: 360J Results: normal sinus rhythm Conclusions: successful TACHO cardioversion (follow w EPS) Patient Problems: Problems Problem Status Onset Abdominal pain Acute Bradycardia Acute End stage kidney disease Acute Hyperkalemia Acute
--- NOTE | 2017-07-11 12:12 | POSTANESTH ---
Post Anesthetic Evaluation Cardiovascular Status: Similar to Pre-Op Cond Respiratory Status: Similar to Pre-op Cond. Level of Consciousness/Mental Status: Mildly Sleepy, Arousable Pain Control: Adequate, Prn Tx Ordered Nausea/Vomiting Control: Adequate, Prn Tx Ordered Complications Possibly Related to Anesthesia: None Noted
--- NOTE | 2017-07-11 12:12 | PDANEPAE ---
ANE History of Present Illness Patient presents for TACHO/Cardioversion ANE Past Medical History - Cardiovascular History Hx Hypertension: Yes Hx Arrhythmias: Yes Hx Chest Pain: No Hx Coronary Artery / Peripheral Vascular Disease: Yes Hx CHF / Valvular Disease: No Hx Palpitations: No Cardiovascular History Comment: hx of junctional les d/t hyperkalemia with hospitalization 05/2016. cad with cabg 2003. 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 hx of right nephrectomy as an . left kidney obstructed in 05/2016 resulting in left AVF to be placed. [facility] [place] - Liver History Hx Hepatic Disorders: No - Neurological & Psychiatric Hx Hx Neurological and Psychiatric Disorders: No - Cancer History Hx Cancer: Yes Cancer History Comment: prostate ca with prostatectomy - Congenital Disorder History Hx Congenital Disorders: No - GI History Hx Gastrointestinal Disorders: No - Other Health History Other Health History: wears glasses. rash to chest and back - Chronic Pain History Chronic Pain: No - Surgical History Prior Surgeries: 05/19/16 Left AVF placed to left lower arm with Santo. right nephrectomy as an . cabg 2003. prostatectomy for cancer ANE Review of Systems Review of Systems: ANE Patient History - Allergies Allergies/Adverse Reactions: No Known Allergies Allergy (Verified 04/25/17 14:23) - Home Medications Home medications: home medication list seen and reviewed Home Medications: Aspirin [Aspirin 81mg (*)] 81 mg PO DAILY 07/24/14 [Last Taken 1 Day Ago ~] Atorvastatin Calcium [Lipitor 40 mg (*)] 40 mg PO DAILY 05/16/16 [Last Taken 1 Day Ago ~05/29/17] amLODIPine BESYLATE [Norvasc 10 mg (*)] 2.5 mg PO DAILY 05/16/16 [Last Taken 1 Day Ago ~05/29/17] Apixaban [Eliquis] 5 mg PO BID 04/20/17 [Last Taken 05/30/17 09:06] Metoprolol Tartrate 12.5 mg PO DAILY 04/20/17 [Last Taken 1 Day Ago ~05/29/17] - NPO status NPO Status: no food or drink >8 hours - Smoking Hx Smoking Status: Former smoker - Family Anes Hx Family Hx Anesthesia Complications: none ANE Labs/Vital Signs - Labs Result Diagrams: 07/11/17 11:00 - Vital Signs Height: 168 cm Weight: 72.5 kg ANE Physical Exam - Airway Neck exam: FROM Mouth exam: abnormal chin - Pulmonary Pulmonary: no respiratory distress - Cardiovascular Cardiovascular: regular rate and rhythym, other (Regular rate, a-flutter) - ASA Status ASA Status: III ANE Anesthesia Plan Anesthesia Plan: GA with mask (RBA discussed)
== END 2017-07-11 14:26 | disposition home or self-care (01) ==
LOC: FCATH 10:25
PROVIDERS: ATTEND Internal Medicine
DX: I48.92 Unspecified atrial flutter (principal); R00.1 Bradycardia, unspecified; G47.33 Obstructive sleep apnea (adult) (pediatric); I12.0 Hypertensive chronic kidney disease with stage 5 chronic kidney disease or end stage renal disease; I25.10 Atherosclerotic heart disease of native coronary artery without angina pectoris; N18.6 End stage renal disease; Z79.01 Long term (current) use of anticoagulants; Z79.82 Long term (current) use of aspirin; Z85.46 Personal history of malignant neoplasm of prostate; Z87.891 Personal history of nicotine dependence; Z95.1 Presence of aortocoronary bypass graft; Z90.5 Acquired absence of kidney; Z99.2 Dependence on renal dialysis
CPT/HCPCS: J0461; J2704

== ENCOUNTER → 2017-07-24 | Outpatient (CLI) | payer OTHER, MEDICARE | LOC: BHFA 14:45 | PROVIDERS: ATTEND Internal Medicine Interventional Cardiology | DX: I48.92 Unspecified atrial flutter (principal) ==

== ENCOUNTER 2017-07-27 05:55 | Day surgery (SDC) | payer OTHER, MEDICARE ==
[2017-07-27] MEDS ORDERED: DIAZEPAM 5 MG TAB PO ONE (06:04)
[2017-07-27] MEDS ORDERED: diphenhydrAMINE 25 MG CAP PO ONE ×2 (06:04→06:36)
[2017-07-27] MEDS ORDERED: FAMOTIDINE 20 MG TAB PO ONE (06:04)
[2017-07-27] MEDS ORDERED: NS 1,000 ML IV ONE (06:04)
[2017-07-27] MEDS ORDERED: ASPIRIN EC 325 MG TAB PO ONE ×2 (06:04→06:36)
--- NOTE | 2017-07-27 06:28 | CPEKG ---
Heart Rate: 57 RR Interval: 1053 P-R Interval: 251 QRSD Interval: 134 QT Interval: 540 QTC Interval: 526 P [place]: 0 QRS [place]: 152 T Wave [place]: -19 EKG Severity - ABNORMAL ECG - EKG Impression: JUNCTIONAL RHYTHM WITH RARE SINUS BEATS NOTED EKG Impression: ATRIAL PREMATURE COMPLEX EKG Impression: SINUS PAUSE/ARREST WITH JUNCTIONAL ESCAPE EKG Impression: FIRST DEGREE AV BLOCK EKG Impression: NONSPECIFIC INTRAVENTRICULAR CONDUCTION DELAY EKG Impression: PRIOR ECG WITH ATRIAL FLUTTER NOTED Electronically Signed By: Mikhail Fernandes 27-Jul-2017 16:32:22
[2017-07-27] MEDS ORDERED: FAMOTIDINE 20 MG TAB ONE (06:36)
[2017-07-27] MEDS ORDERED: DIAZEPAM 5 MG TAB ONE (06:36)
[2017-07-27 06:45] LABS: PLATELET COUNT 211 10^3/uL (150-400)
[2017-07-27 06:55] LABS: INR 1.46 (0.83-1.16); PROTIME(PATIENT) 17.9 SEC (12.0-15.0)
--- NOTE | 2017-07-27 08:02 | PDPROPOC ---
Sedation Plan of Care Sedation Plan of Care: vital signs stable, mental status noted, patient educated of risks, benefits, alternatives, patient can tolerate sedation Planned drugs: fentanyl, midazolam Mallampati Score: Class 3 Mallampati Reference Image: Patient passed 3-3-2 rule?: Yes
--- NOTE | 2017-07-27 08:03 | PDHPUP ---
History & Physical Update H&P update statement: This history and physical update is based on an assessment of the patient which was completed after admission or registration (within 24 hours), but prior to the surgery/procedure. H&P update: H&P reviewed & patient examined, changes noted (The patient has extreme bradycardia and junctional escape rhythm)
[2017-07-27] MEDS ORDERED: LIDOCAINE 1% 300 MG/30 ML SDV ONE (08:12)
[2017-07-27] MEDS ORDERED: fentaNYL 100 MCG/2 ML INJ ONE (08:12)
[2017-07-27] MEDS ORDERED: HEPARIN 10,000 UNIT/10 ML MDV (1,000 UNIT/ML) ONE (08:13)
[2017-07-27] MEDS ORDERED: IOPAMIDOL (ISOVUE-370) 150 ML BTL IV ONE (08:13)
[2017-07-27] MEDS ORDERED: VERAPAMIL 5 MG/2 ML VIAL ONE (08:13)
[2017-07-27] MEDS ORDERED: MIDAZOLAM 2 MG/2 ML VIAL ONE (08:13)
[2017-07-27] MEDS ORDERED: ONDANSETRON 4 MG/2 ML VIAL IVP PRN (09:20)
[2017-07-27] MEDS ORDERED: HYDROCODONE/APAP 5/325 TAB PO PRN (09:20)
[2017-07-27] MEDS ORDERED: NITROGLYCERIN 0.4 MG BTL SL PRN (09:20)
[2017-07-27] MEDS ORDERED: ATROPINE SULFATE 1 MG/10 ML SYR IVP PRN (09:20)
[2017-07-27] MEDS ORDERED: OXYCODONE/APAP 5/325 TAB PO PRN (09:20)
--- NOTE | 2017-07-27 10:07 | CPIP ---
[f rep st] INVASIVE CARDIAC PROCEDURE DATE OF PROCEDURE: 07/27/2017 PROCEDURE PERFORMED: 1. Selective coronary angiography. 2. Left and right heart catheterization. 3. Left ventriculogram. 4. Saphenous vein graft to the RCA angiography. 5. Saphenous vein graft angiography to the circumflex obtuse marginal system. 6. KELLER angiography to the LAD. INDICATIONS/APPROPRIATE USE CRITERIA: Camron Espinoza has had crescendo type angina and is likely to be a candidate for renal transplant. Needs angiography to rule out obstructive coronary disease. The patient has a known history of coronary artery bypass grafting in the past in 2003 with saphenous vei n graft to the system, saphenous vein graft to the RCA, and a KELLER to the LAD. PROCEDURE IN DETAIL: After informed consent was obtained and n.p.o. status was confirmed, a 6-Panamanian sheath was placed in the right common femoral artery and a 7-Panamanian sheath in the right common femor al vein using modified Seldinger technique and a micropuncture set. The pulmonary capillary wedge pr essure was measured as a mean of 11, A-waves 13, V-waves 18. The PA pressure was 53 with diastolic p ressure of 19, mean 29. Diastolic pressure of 5 with an end-diastolic pressure of 10. RA pressure w as 9. A-waves were measured at 13 and V-waves were measured at 10. Complete saturation run was comp leted with a Nataly cardiac output. Saturations in the aorta were 97.9. The PA pressure is 73.9, the SVC is 72. IVC is 73. This yielded a Nataly cardiac output of 4.59 with a Nataly cardiac index of 2.48 L/minute per sq m. The patient then underwent the previously-mentioned diagnostic procedure with use of a JL4 and R4 curved coronary catheter as well as a 6-Panamanian KELLER catheter and a 6-[place]amanian pigtail catheter. Standard wire exchange technique was utilized for all catheter exchanges. The left main coronary lumen is approximately 5 mm in size and bifurcates into an LAD and circumflex system. The circumflex vessel is occluded proximally with minimal jbcd-xt-hwag collaterals from the circumflex to a high obtuse marginal system. There are also ixkr-om-crsa collaterals from the distal diagonal vessel to the posterior circulation. The LAD is approximately 3 mm in size and courses in its usual position, giving rise to a large and important diagonal branch which is widely patent with NOEMÍ-3 flow. No flow-limiting obstruction of the LAD diagonal circulation is noted. At the level of the 1st major septal and diagonal take-off just past the 1st septal takeoff and at the level of the major diagonal take-off the LAD is subtotally occluded with a 99% obstruction with evidence of compet itive flow on the angiography. The right coronary was originally dominant. There is a critical lesion proximal to an RV branch, whi ch is estimated to be 90% stenosed. The RCA proper is occluded after the acute marginal branch witho ut evidence of czqho-ia-upvgk or gdryu-nx-ghts collaterals. The saphenous vein graft to the RCA is w idely patent with anastomosis to the PDA. Distal to the AV groove there is evidence of distal collat erals to the posterior circulation of the heart from the distal right coronary artery. The graft act ually looks quite nice and is widely patent without flow-limiting obstruction, dissection, or thrombu s. The saphenous vein graft to the circ obtuse marginal system is occluded and KELLER to the LAD was a ccessed with a KELLER catheter and is widely patent with an excellent anastomosis and no significant fl ow-limiting obstruction is identified. The patient underwent left heart catheterization demonstrating elevated left ventricular end-diastoli c pressure measured at 17 mmHg. The patient underwent left ventriculogram in the MILLER projection, dem onstrating mildly depressed left ventricular systolic function. Estimated ejection fraction is 50%. Minor mid anterior wall motion abnormalities are present. No significant mitral regurgitation was n oted. 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 There is no nya aneurysm or dissection. FINAL IMPRESSION: Severe upper [place] vessel coronary disease with patent grafts, KELLER to the LAD, and vei n graft to the RCA with collateralized posterior circulation and total occlusion of the left circumfl ex. This would appear to result in some ischemia to the posterior wall. However, this does not appe ar to affect the patient's overall function or valvular function. The patient does have moderate pul monary hypertension without evidence of a shunt and does have a critical RCA lesion proximal to the R V branch which could potentially affect RV function in the future. I do not think it should be stent ed unless there is evidence of RV dysfunction on echocardiography. Of note is that the patient has extreme sinus bradycardia with heart rates in the 30 to 35 range and with his history of atrial fibrillation these findings along with intermittent junctional escape rhyt hm and AV dissociation by would be consistent with sick sinus syndrome with symptomatic br adycardia, intermittent atrial fibrillation, sinus arrest and pauses resulting in junctional rhythm. The patient may be considered a candidate for a permanent pacemaker insertion with a dual-chamber de vice to help improve his overall cardiac output and energy level with exercise. patient. I do not th ink that any of the findings today on the angiography and LV gram and right heart catheterization magnus t were performed should preclude the patient from receiving a renal transplant in the event that an a ppropriate or suitable candidate for renal transplant is identified. Copy requested to: Dr. Bustos, Renal Service /[id number]/MODL
[2017-07-27] MEDS ORDERED: LIDOCAINE 1% 300 MG/30 ML SDV MISC ONE (17:00)
--- NOTE | 2017-07-27 19:16 | POSTOPPROG ---
Post Op Note Date of Operation: 07/27/17 Surgeon: Guy Blanchard Anesthesia: Local (Specify) Pre-op Diagnosis: crf, cracked palindrome cath Post-op Diagnosis: same Indication: prevent infection Procedure: removal palindrome dialysis cath Findings: no signs of infection Inf/Abcess present in the surg proc area at time of surgery?: No Depth: Deep Incisional (Fascial) EBL: Minimal Complications: 0 Specimen(s): cath
[2017-07-27] MEDS ORDERED: ATORVASTATIN CALCIUM 40 MG TAB PO SCH (21:00)
[2017-07-27] MEDS ORDERED: VITAMIN B COMPLEX 1 EA CAP/TAB PO SCH (21:00)
[2017-07-27] MEDS ORDERED: WARFARIN SODIUM 2.5 MG TAB PO SCH (21:00)
[2017-07-28] MEDS ORDERED: WARFARIN SODIUM 5 MG TAB PO SCH (21:00)
[2017-07-29] MEDS ORDERED: AMIODARONE HCL 200 MG TAB PO SCH (09:00)
[2017-07-29] MEDS ORDERED: METOPROLOL TARTRATE 25 MG TAB PO SCH (09:00)
== END 2017-07-27 18:41 | disposition home or self-care (01) ==
LOC: FCATH 05:55
PROVIDERS: ATTEND Internal Medicine Cardiovascular Disease
DX: I25.10 Atherosclerotic heart disease of native coronary artery without angina pectoris (principal); I27.20 Pulmonary hypertension, unspecified; N18.6 End stage renal disease; Z99.2 Dependence on renal dialysis; Z79.01 Long term (current) use of anticoagulants; Z95.1 Presence of aortocoronary bypass graft
CPT/HCPCS: C1760; J1644; J2250; J3010; Q9967

== ENCOUNTER → 2017-08-02 | Outpatient (CLI) | payer OTHER, MEDICARE | LOC: BHFA 15:00 | PROVIDERS: ATTEND Internal Medicine Cardiovascular Disease | DX: I48.92 Unspecified atrial flutter (principal) ==

== ENCOUNTER 2017-08-08 08:37 | Observation (INO) | payer OTHER, MEDICARE ==
[2017-08-08] MEDS ORDERED: diphenhydrAMINE 25 MG CAP PO ONE (08:42)
[2017-08-08] MEDS ORDERED: NS 1,000 ML IV ONE (08:42)
[2017-08-08] MEDS ORDERED: ceFAZolin 2 GM/DEXTROSE 100 ML IV ONE (08:42)
[2017-08-08] MEDS ORDERED: BACITRACIN IRRIGATION/NS 50,000 UNITS/1,000 ML BTL IRR ONE (08:42)
[2017-08-08] MEDS ORDERED: DIAZEPAM 5 MG TAB PO ONE (08:42)
--- NOTE | 2017-08-08 09:11 | CPEKG ---
Heart Rate: 46 RR Interval: 1304 P-R Interval: 192 QRSD Interval: 118 QT Interval: 496 QTC Interval: 434 P [place]: 45 QRS [place]: -21 T Wave [place]: 6 EKG Severity - ABNORMAL ECG - EKG Impression: INCOMPLETE RIGHT BUNDLE BRANCH BLOCK EKG Impression: SINUS BRADYCARDIA Electronically Signed By: Mikhail Durham 10-Aug-2017 08:32:35
[2017-08-08 10:36] LABS: PLATELET COUNT 196 10^3/uL (150-400)
[2017-08-08 10:45] LABS: INR 1.55 (0.83-1.16); PROTIME(PATIENT) 18.7 SEC (12.0-15.0)
--- NOTE | 2017-08-08 10:59 | PDHPUP ---
History & Physical Update H&P update statement: This history and physical update is based on an assessment of the patient which was completed after admission or registration (within 24 hours), but prior to the surgery/procedure. H&P update: H&P reviewed & patient examined (Continued severe bradycardia with profound fatigue, for pacer today.), no change in patient's condition since H&P completed
--- NOTE | 2017-08-08 11:00 | PDPROPOC ---
Sedation Plan of Care Sedation Plan of Care: vital signs stable, mental status noted, patient educated of risks, benefits, alternatives, patient can tolerate sedation ASA Classification: ASA 3 Planned drugs: fentanyl, midazolam Mallampati Score: Class 1 Mallampati Reference Image: Patient passed 3-3-2 rule?: Yes
[2017-08-08] MEDS ORDERED: IOPAMIDOL (ISOVUE-300) 50 ML VIAL ONE (12:38)
[2017-08-08] MEDS ORDERED: LIDOCAINE 1% 300 MG/30 ML SDV ONE (12:38)
[2017-08-08] MEDS ORDERED: BUPIVACAINE 0.5% 30 ML SDV ONE (12:39)
[2017-08-08] MEDS ORDERED: LIDO/EPI 1% **for epidural** 30 ML SDV ONE (12:39)
[2017-08-08] MEDS ORDERED: MIDAZOLAM 2 MG/2 ML VIAL ONE ×2 (12:39→14:46)
[2017-08-08] MEDS ORDERED: fentaNYL 100 MCG/2 ML INJ ONE ×2 (12:39→14:55)
--- NOTE | 2017-08-08 15:39 | PDCTREPORT ---
Cardiothoracic Procedure Rpt Cardiothoracic Procedure Report: Procedure: Implantation of a dual-chamber permanent pacemaker. Indications: Junctional rhythm at 28 associated with fatigue. History of sick sinus syndrome with atrial fibrillation. After obtaining informed consent patient brought to the cardiac catheterization lab. Initially plans were to insert this on the left side. He has a functioning AV fistula in that arm. He had a port placed in the right which has been recently removed. Inspection of that krystal pectoral region showed no evidence of infection with a small hematoma. In light of need for dialysis tomorrow I elected to proceed with sterilely prepping the right side. Subclavian vein was imaged under fluoroscopy. The krystal pectoral groove was sterilely prepped and draped in a pursue reduce and xylocaine. Using a 10 blade incision was made. Using a combination of sharp blunt dissection pacemaker pocket was created. Hemostasis was achieved. Bacitracin soaked sponge was placed in the pocket. 18 gauge percutaneous needle was used to access the right subclavian vein x2. Guidewires were advanced into the right heart. Using 8 [place] Island[place] safety sheath pre-dilated with a 5 [place] dilator leads were advanced into the RV apex and right atrial appendage. Appropriate sensitivities and thresholds were confirmed. Sheaths were torn away. Leads were secured to the fascia using 0 Ethibond x2. Bacitracin soaked sponge was removed from the pocket. It was copiously irrigated. Generator was delivered to the field. Leads were attached using industry standards. Serial numbers were verified. The pacemaker was coiled into the pocket. Standard three-layer closure was used. The device is a [employer] MRI [id number] serial 8. 911 weight 1551. Right atrial lead is a tendril MRI serial number [id number]. Right ventricular lead is a tendril MRI serial number [id number]. Right atrial sensing was 3.6 mV with capture 1.8 volts at a pulse with a 0.5 milliseconds impedance was 413 Ohms. Right ventricular sensing was 7.8 mV capture was at 0.9 volts with a pulse with a 0.5 milliseconds impedance was 661 Ohms. 10 volt phrenic stimulation revealed no phrenic nerve activation. Conclusions: Successful insertion of a dual-chamber permanent pacemaker. Patient Problems: Problems Problem Status Onset Hyperkalemia Acute End stage kidney disease Acute Bradycardia Acute Abdominal pain Acute
[2017-08-08] MEDS ORDERED: ACETAMN/DIPHENHYDRAMINE 500/25MG TAB PO PRN (16:06)
--- NOTE | 2017-08-08 16:10 | CPEKG ---
Heart Rate: 60 RR Interval: 1000 P-R Interval: 232 QRSD Interval: 134 QT Interval: 516 QTC Interval: 516 QRS Mascot: -39 T Wave Mascot: -12 EKG Severity - ABNORMAL ECG - EKG Impression: ATRIAL-PACED RHYTHM EKG Impression: RIGHT BUNDLE BRANCH BLOCK EKG Impression: LEFT ANTERIOR FASCICULAR BLOCK Electronically Signed By: Mikhail Durham 10-Aug-2017 08:31:48
[2017-08-08] MEDS: ACETAMINOPHEN 325 MG TAB PO PRN (19:53)
[2017-08-08] MEDS: METOPROLOL TARTRATE 25 MG TAB PO SCH (19:54)
[2017-08-08] MEDS ORDERED: VITAMIN B COMPLEX 1 EA CAP/TAB PO SCH (21:00)
[2017-08-08] MEDS ORDERED: ATORVASTATIN CALCIUM 40 MG TAB PO SCH (21:00)
[2017-08-09] MEDS: ACETAMINOPHEN 325 MG TAB PO PRN ×3 (00:23→09:24)
[2017-08-09 07:20] VITALS: BP 167/83
[2017-08-09] MEDS ORDERED: AMIODARONE HCL 200 MG TAB PO SCH (09:00)
[2017-08-09] MEDS: METOPROLOL TARTRATE 25 MG TAB PO SCH (09:21)
--- NOTE | 2017-08-09 10:36 | ASMTDCNOTE ---
Case Management Discharge Discharge Order Complete? Answers: Yes Patient to Obtain Answers: Independently Medications Discharge Comments Notes: 08/09/2017 Case Management Note Pt to d/c independent. Provided cab voucher to dialysis in [place]. Brother to knot picker cloth pt from Dialysis and transport home. Date Signed: 08/09/2017 10:36 AM Electronically Signed By:Kalani Jackson RN
--- NOTE | 2017-08-09 10:37 | ASDISCHSUM ---
Discharge Information Plan Status:Home with No Needs Medically Cleared to Leave:08/09/2017 Discharge Date:08/09/2017 CM D/C Disposition:Home, Routine, Self-Care ADT D/C Disposition:Home, Routine, Self-Care Projected Discharge Date:08/09/2017 Transportation at D/C:Cab Voucher Discharge Delay Reason: Follow-Up Date:08/09/2017 Discharge Slot: Final Diagnosis: Placement Information Patient Contact Information Contact Name:ANAYELI Relationship: Address: City:[place] Alternate Phone: [facility] Code:[place] Email: Financial Information Financial Class:Medicare Primary Plan Desc:MEDICARE OUTPATIENT Primary Plan Number:[id number] Secondary Plan Desc:[employer]/MDR SUPPLEMENT Secondary Plan Number:[id number] Assessment Information Case Management Discharge Plan Note Case Management Discharge Discharge Order Complete? Answers: Yes Patient to Obtain Answers: Independently Medications Discharge Comments Notes: 08/09/2017 Case Management Note Pt to d/c independent. Provided cab voucher to dialysis in [place]. to chicken picker pt from Dialysis and transport home. Date Signed: 08/09/2017 10:36 AM Electronically Signed By:Kalani Jackson RN Intervention Information Intervention Type:*TORRES-Signed Date of Service:08/09/2017 10:31 AM Patient Type:Observation Staff Member:BRYAN Jackson [place] Hours: Discipline: Severity: Comment: Intervention Type:Cab Vouchers Date of Service:08/09/2017 10:32 AM Patient Type:Observation Staff Member:BRYAN Jackson Hillary Hours: Discipline: Severity: Comment:
--- NOTE | 2017-08-09 10:39 | ASMTLACE ---
LACE Length of stay for Answers: Less than 1 day current admission Acuity / Level of Answers: No Care: Did the patient have an inpatient admission? Comorbidities - select Answers: Other Notes: junctional rrhythm with all that apply h/o sick sinus syndrome with afib. # of Emergency department Answers: 1-2 visits in the last 6 months Score: 2 Date Signed: 08/09/2017 10:38 AM Electronically Signed By:Kalani Jackson RN
--- NOTE | 2017-08-09 13:17 | GDS ---
[f rep st] DISCHARGE SUMMARY DISCHARGE DIAGNOSES: 1. Sick sinus syndrome with profound bradycardia with heart rate in the 20s, status post permanent pacemaker implantation with a [place] device on this admission. 2. End-stage renal disease, on hemodialysis. 3. Atrial fibrillation. 4. Coronary artery disease with bypass in the past. 5. Hypertension. 6. Prostate cancer. PROCEDURES: 1. 08/08/2017, dual-chamber permanent pacemaker implantation for junctional rhythm at 28 beats per minute with associated fatigue. 2. Serial chest x-rays. BRIEF HISTORY: Please see dictated H and P for complete details. In brief, Mr. Camron Espinoza presented to his primary care physician's office and was found to have severe bradycardia with associated profound fatigue, and was direct admitted for permanent pacemaker implantation. The procedure was uncomplicated , and device check and chest x-rays are stable. He notes mild 2 to 3/10 right- sided pacer site pain, alleviated with ice and analgesia with Tylenol. PHYSICAL EXAM: VITAL SIGNS: On day of discharge, blood pressure 167/83, heart rate of 60, respirations 18, O2 saturation 94% on room air, temp of 98.2 degrees Fahrenheit. GENERAL: He is a pleasant male, in no apparent distress. HEENT: Head is normocephalic, atraumatic. Eyes are without scleral icterus. HEART: Distant heart sounds. Regular rate and rhythm. LUNGS: Clear to auscultation bilaterally. SKIN: Warm and dry. Pacer site with intact dressing with no ecchymosis or edema. RESULTS PENDING: None. DIET: Per previous. ACTIVITY: Right arm precautions were reviewed. DISCHARGE MEDICATIONS: Please see med reconciliation for complete details. He will be continued on all his home medications, including his warfarin. He is to have an INR check done in 5 days' time. Five days of Doxycycline were also given to him given proximity of pacer site to previous tunneled catheter site. DISCHARGE INSTRUCTIONS: 1. Discharged to home for outpatient dialysis as scheduled. 2. Arm precautions as reviewed. 3. Follow up with [facility] in 1 week's time. 4. Follow up with Dr. Rojo as scheduled. 5. Doxycycline with sooner INR check. /[id number]/MODL MTDD
== END 2017-08-09 13:34 | disposition home or self-care (01) ==
LOC: FCATH 08:37 → F2W 15:53
PROVIDERS: ADMIT Internal Medicine Interventional Cardiology; ATTEND Internal Medicine Interventional Cardiology
PROC: 0JH604Z Insertion of Pacemaker, Single Chamber into Chest Subcutaneous Tissue and Fascia, Open Approach (ICD-10-PCS; principal; 2017-08-08)
PROC: 02H63JZ Insertion of Pacemaker Lead into Right Atrium, Percutaneous Approach (ICD-10-PCS; principal; 2017-08-08)
PROC: 02HK3JZ Insertion of Pacemaker Lead into Right Ventricle, Percutaneous Approach (ICD-10-PCS; principal; 2017-08-08)
DX: I49.5 Sick sinus syndrome (principal); I48.91 Unspecified atrial fibrillation; I25.10 Atherosclerotic heart disease of native coronary artery without angina pectoris; N18.6 End stage renal disease; I12.0 Hypertensive chronic kidney disease with stage 5 chronic kidney disease or end stage renal disease; Z95.1 Presence of aortocoronary bypass graft; Z85.46 Personal history of malignant neoplasm of prostate; Z99.2 Dependence on renal dialysis
CPT/HCPCS: 33208; 71045; 71046; 93005; C1785; C1898; J0690; J2250; J3010; Q9967

== ENCOUNTER → 2017-08-31 | Outpatient (CLI) | payer OTHER, MEDICARE | LOC: BHFA 14:00 | PROVIDERS: ATTEND Internal Medicine Cardiovascular Disease | DX: I25.10 Atherosclerotic heart disease of native coronary artery without angina pectoris (principal) ==

== ENCOUNTER → 2017-11-09 | Outpatient (CLI) | payer OTHER, MEDICARE | LOC: BHFA 13:30 | PROVIDERS: ATTEND Internal Medicine Cardiovascular Disease | DX: I48.91 Unspecified atrial fibrillation (principal) ==

== ENCOUNTER → 2017-11-25 | Outpatient (CLI) | payer OTHER, MEDICARE | LOC: FIMAGING 12:05 | PROVIDERS: ATTEND Internal Medicine Pulmonary Disease | DX: R94.2 Abnormal results of pulmonary function studies (principal); Z87.891 Personal history of nicotine dependence; Z86.79 Personal history of other diseases of the circulatory system ==

== ENCOUNTER → 2018-05-22 | Outpatient (CLI) | payer OTHER, MEDICARE | LOC: BHFA 09:30 | PROVIDERS: ATTEND Internal Medicine Cardiovascular Disease | DX: Z01.818 Encounter for other preprocedural examination (principal); I48.91 Unspecified atrial fibrillation; I25.10 Atherosclerotic heart disease of native coronary artery without angina pectoris | CPT/HCPCS: 78452; 93017; A9500; J2785 ==

== ENCOUNTER → 2018-05-29 | Outpatient (CLI) | payer OTHER, MEDICARE | LOC: BHFA 10:00 | PROVIDERS: ATTEND Internal Medicine Cardiovascular Disease | DX: Z76.82 Awaiting organ transplant status (principal) ==

== ENCOUNTER 2018-06-14 09:18 | Day surgery (SDC) | payer OTHER, MEDICARE ==
[2018-06-14] MEDS ORDERED: FAMOTIDINE 20 MG TAB PO ONE (09:21)
[2018-06-14] MEDS ORDERED: ASPIRIN EC 325 MG TAB PO ONE ×2 (09:21→09:50)
[2018-06-14] MEDS ORDERED: diphenhydrAMINE 25 MG CAP PO ONE ×2 (09:21→09:50)
[2018-06-14] MEDS ORDERED: NS 1,000 ML IV ONE (09:21)
[2018-06-14] MEDS ORDERED: DIAZEPAM 5 MG TAB PO ONE (09:21)
[2018-06-14] MEDS ORDERED: FAMOTIDINE 20 MG TAB ONE (09:50)
[2018-06-14] MEDS ORDERED: DIAZEPAM 5 MG TAB ONE (09:50)
[2018-06-14 10:29] LABS: PLATELET COUNT 261 10^3/uL (150-400)
--- NOTE | 2018-06-14 11:09 | PDPROPOC ---
Sedation Plan of Care Sedation Plan of Care: mental status noted, patient educated of risks, benefits , alternatives, patient can tolerate sedation ASA Classification: ASA 2 Planned drugs: fentanyl, midazolam Mallampati Score: Class 2 Mallampati Reference Image: Patient passed 3-3-2 rule?: Yes
[2018-06-14] MEDS ORDERED: CLOPIDOGREL BISULFATE 75 MG TAB PO ONE (11:15)
[2018-06-14 11:41] LABS: INR 1.38 (0.83-1.16); PROTIME(PATIENT) 16.4 SEC (12.0-15.0)
[2018-06-14] MEDS ORDERED: LIDOCAINE 1% 300 MG/30 ML SDV ONE (13:10)
[2018-06-14] MEDS ORDERED: IOPAMIDOL (ISOVUE-370) 150 ML BTL IV ONE (13:11)
[2018-06-14] MEDS ORDERED: fentaNYL 100 MCG/2 ML INJ ONE ×2 (13:11→13:47)
[2018-06-14] MEDS ORDERED: MIDAZOLAM 2 MG/2 ML VIAL ONE ×2 (13:11→13:47)
[2018-06-14] MEDS ORDERED: HYDROCODONE/APAP 5/325 TAB PO PRN (14:25)
[2018-06-14] MEDS ORDERED: ONDANSETRON 4 MG/2 ML VIAL IVP PRN (14:25)
[2018-06-14] MEDS ORDERED: ATROPINE SULFATE 1 MG/10 ML SYR IVP PRN (14:25)
[2018-06-14] MEDS ORDERED: NITROGLYCERIN 0.4 MG BTL SL PRN (14:25)
[2018-06-14] MEDS ORDERED: OXYCODONE/APAP 5/325 TAB PO PRN (14:25)
--- NOTE | 2018-06-14 20:07 | CPIP ---
[f rep st] INVASIVE CARDIAC PROCEDURE DATE OF PROCEDURE: 06/14/2018 INDICATION FOR PROCEDURE: Positive stress test pre renal transplant. PROCEDURE: 1. Nonselective right groin sheathogram. 2. A 7-[place] sheath to right common femoral vein. 3. Right heart catheterization with [place] catheter. 4. Bilateral coronary angiography. 5. Left heart catheterization. 6. Left ventriculogram. 7. Saphenous vein angiography to distal right coronary artery. 8. Left internal mammary artery angiography to left anterior descending. HISTORY: A 72-year-old male with history of bypass surgery and end-stage renal disease. The patient had a recent stress test which showed mild moderate defect. In addition, the patient has been havin g some shortness of breath as well. Given these findings, the patient was consented for right and le ft heart catheterization. DESCRIPTION OF PROCEDURE: After informed consent, the patient was brought to [facility] where the right meghann in was prepped and draped in sterile fashion using lidocaine. A short 6-[place] sheath right femoral artery verified angiographically. A 7-[place] sheath in the right femoral vein. [place] catheter w as then advanced. Wedge pressure was a mean of 13, A-wave 15, V-wave 15, PA pressure systolic 55, di astolic 21, mean of 35, RV pressure 55, diastolic 4, end of 11, RA pressure mean of 11, A-wave 17, V- wave 11. Cardiac output was measured to be 5.9 by Nataly with a cardiac index of 3.2, AO sat 93%. PA sat 68%. [place] catheter was then removed. A JL4 catheter was then advanced to the left coronary artery. Images of the left coronary artery revealed normal left main. The left circumflex system a ppeared to be 100% occluded after its ostial takeoff. There was a moderate to large diagonal artery coming off proximally and the LAD appeared to be occluded just after the takeoff of this diagonal art franc. There was a large septal sawmill supervisor coming off before the occluded vessel. There was mild 30% plaque in the proximal mid aspect of this vessel, but no high-grade obstruction. No high-grade lesio n. The JL4 catheter was then removed. The JR4 catheter advanced to the right coronary artery. Imag es of the right coronary artery revealed a normal ostial RCA, 80-90% mid RCA with totally occluded RC A distally. After these images were obtained, the JR4 catheter was removed and switched down into th e left intermammary artery and exchanged for a KELLER catheter, which showed widely patent KELLER anastom osing into a very tiny distal LAD which retrograde filled into what appeared to be another diagonal a rtery branch. After these images were obtained, the KELLER catheter was removed and a multipurpose cat heter was advanced and successfully engaged into a saphenous vein graft which anastomosed into the RP DA with retrograde fill into the RP less. This graft was widely patent and the distal vessels appear ed to be healthy and free of disease. Of note, there was also collateralization from the distal RPDA and RP less going into what appeared to be the circumflex system. The KELLER catheter was then remove d. A pigtail catheter was advanced to the left ventricle. EDP is 20 mmHg. Left ventriculogram in t he MILLER projection showed EF of 65% with no wall motion abnormalities. No pullback gradient between t he LV and the aorta. Pigtail catheter was removed over a 0.035 guide wire. Right groin closed with 6-[place] Angio-Seal. The patient tolerated the procedure well with no complications. IMPRESSION: 1. Severe [place] coronary artery disease. 2. Patent saphenous vein graft to right posterior descending artery and patent left internal mammary artery to left anterior descending. 3. Moderate pulmonary hypertension. 4. Normal cardiac output. 5. Normal ejection fraction. PLAN: The patient's catheterization findings today are identical to his findings from his catheteriz ation 1 year ago. We will continue his current medical therapy. There is no changes that warrant an y further intervention at this time. He will continue with his pre transplant workup and be discharg ed later home today. /[id number]/MODL
== END 2018-06-14 17:42 | disposition home or self-care (01) ==
LOC: FCATH 09:18
PROVIDERS: ATTEND Internal Medicine Cardiovascular Disease
DX: I25.10 Atherosclerotic heart disease of native coronary artery without angina pectoris (principal); I27.20 Pulmonary hypertension, unspecified; I48.91 Unspecified atrial fibrillation; N18.6 End stage renal disease; I12.0 Hypertensive chronic kidney disease with stage 5 chronic kidney disease or end stage renal disease; Z99.2 Dependence on renal dialysis; Z95.1 Presence of aortocoronary bypass graft
CPT/HCPCS: C1760; J1644; J2250; J3010; Q9967

== ENCOUNTER → 2018-08-02 | Outpatient (CLI) | payer OTHER, MEDICARE | LOC: BMCIMAGING 13:40 ==